=== PATIENT | female | born 1940 | race Caucasian/White ===

== ENCOUNTER 2017-03-13 18:24 | Inpatient (IN) | payer MEDICARE, OTHER ==
[~2017-03-13] VITALS: Ht 160 cm; Wt 52.8 kg
[~2017-03-13 18:24] MED LIST: CALC1TAB98 PO; EFFEXOR PO; FAMO20TA18 PO; IBUP800T25 PO; LISI-325 PO; METO10TA92 PO; OXYBUTYNIN PO; PANT40TA4 PO
[2017-03-13] MEDS ORDERED: morphine 4 MG/ML VIAL IV STA (18:53)
[2017-03-13] MEDS ORDERED: ONDANSETRON 4 MG INJ IV STA (18:53)
[2017-03-13] MEDS ORDERED: SOD CHLORIDE 0.9% 1,000 ML IV STA (18:53)
[2017-03-13] MEDS ORDERED: HYDROmorphONE 1 MG/ML SYG IV STA (19:07)
[2017-03-13 19:14] VITALS: TEMP 98.2
[2017-03-13 19:16] LABS: BASOPHILS % 0.2 % (0.0-2.0); EOSINOPHILS % 0.1 % (0.0-7.0); HEMOGLOBIN 13.1 g/dl (12.0-16.0); LYMPHOCYTES # 1.3 10^3/ul (0.8-2.9); LYMPHOCYTES % 6.8 % (15.0-51.0); MEAN CORPUSCULAR HEMOGLOBIN 30.3 pg (29.0-33.0); MEAN CORPUSCULAR HGB CONC 33.6 g/dl (32.0-37.0); MEAN CORPUSCULAR VOLUME 90.3 fl (82.0-101.0); MEAN PLATELET VOLUME 10.3 fl (7.4-10.4); MONOCYTE # 1.4 10^3/ul (0.3-0.9); MONOCYTES % 7.1 % (0.0-11.0); NEUTROPHILS % 85.3 % (39.0-77.0); PLATELET COUNT 395 10^3/UL (140-415); RED BLOOD COUNT 4.32 10^6/ul (4.20-5.40); RED CELL DISTRIBUTION WIDTH 13.2 % (11.5-14.5); WHITE BLOOD COUNT 19.2 10^3/ul (4.8-10.8)
[2017-03-13 19:40] LABS: ALBUMIN 4.3 g/dl (3.3-4.9); ALBUMIN/GLOBULIN RATIO 1.26; BILIRUBIN,INDIRECT 0.6 mg/dl (0-1.1); BILIRUBIN,TOTAL 0.6 mg/dl (0.2-1.3); CALCIUM 9.4 mg/dl (8.4-10.2); CREATININE 1.14 mg/dl (0.44-1.00); POTASSIUM 3.9 mmol/L (3.5-5.1); TOTAL PROTEIN 7.7 g/dl (6.1-8.1)
[2017-03-13 19:59] LABS: ADD UMIC YES; UR ASCORBIC ACID NEGATIVE (NEGATIVE); UR BACTERIA FEW /HPF (NONE SEEN); UR BILIRUBIN (Dip) NEGATIVE (NEGATIVE); UR BLOOD (Dip) 2+ mg/dL (NEGATIVE); UR CLARITY CLEAR (CLEAR); UR COLOR YELLOW (YELLOW); UR GLUCOSE (Dip) NEGATIVE (NEGATIVE); UR KETONES (Dip) TRACE mg/dL (NEGATIVE); UR LEUKOCYTE ESTERASE (Dip) NEGATIVE Leu/ul (NEGATIVE); UR NITRITE (Dip) NEGATIVE (NEGATIVE); UR RBC 7 /HPF (0-5); UR SPECIFIC GRAVITY (Dip) 1.011 (1.003-1.030); UR TOTAL PROTEIN (Dip) NEGATIVE (NEGATIVE); UR UROBILINOGEN (Dip) NEGATIVE (NEGATIVE)
[2017-03-13] MEDS ORDERED: METOCLOPRAMIDE 10 MG INJ IV ONE (20:00)
--- NOTE | 2017-03-13 20:29 | ERD ---
ER Documentation Chief Complaint Date/Time DATE: 03/13/17 TIME: 20:21 Chief Complaint ABD PIN X3 DAYS, SEVERE TODAY, NAUSEA/VOMITING HPI 76-year-old female presents for severe abdominal pain in the center of her abdomen for 3 days. She has had occasional nausea and vomiting. She denies diarrhea. States that she does have trouble having a bowel movement sometimes. 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 She has no abdominal pain no 4 left right upper lower quadrants. Has no chest pain or shortness of breath. Has no fever and chills ROS All systems reviewed and are negative except as per history of present illness. Medications Home Meds Reported Medications Metoclopramide* (Reglan*) 10 Mg Tablet, 10 MG PO AC MEALS, TAB 03/31/14 Pantoprazole (Protonix) 40 Mg Tabec, 40 MG PO QHS, TAB 03/31/14 Ibuprofen* (Ibuprofen*) 800 Mg Tab, 800 MG PO, TAB 03/31/14 Famotidine* (Famotidine*) 20 Mg Tablet, 20 MG PO DAILY, TAB 03/31/14 [Effexor] 75 MG TAB No Conflict Check, 75 MG PO DAILY 02/26/13 Calcium Carbonate-Vitamin D3 (Calcium + D 600 Tablet) 1 Tab Tablet, 1 TAB PO BID 02/26/13 Lisinopril-Hydrochlorothiazide (Lisinopril-HCTZ) 1 Tab Tablet, 1 TAB PO DAILY 02/26/13 [Oxybutynin] 25 MG TAB No Conflict Check, 25 MG PO QID 02/26/13 Allergies Allergies: Coded Allergies: aspirin (Verified Allergy, Mild, 03/30/14) gabapentin (Verified Allergy, Mild, ITCHINESS, 03/30/14) hydrocodone (Verified Allergy, Mild, MAKES PT SICK, 04/06/14) PMhx/Soc History of Surgery: Yes (BILAT ROTATOR CUFF SURGERY; WRIST SURGERY, FACE SUGERY ) Anesthesia Reaction: No Hx Neurological Disorder: Yes (MS) Hx Respiratory Disorders: No Hx Cardiac Disorders: Yes (HTN) Hx Psychiatric Problems: Yes (DEPRESSION) Hx Miscellaneous Medical Probl: Yes (bilateral pelvic fx D/T mech fall) Hx Alcohol Use: Yes (OOC) Hx Substance Use: Yes (MJ) Hx Tobacco Use: No Smoking Status: Former smoker Physical Exam Vitals Vital Signs Date Time Temp Pulse Resp B/P Pulse Ox O2 Delivery O2 Flow Rate FiO2 03/13/17 21:00 100 2.0 28 03/13/17 19:14 98.2 108 28 147/81 99 Room Air 03/13/17 18:29 98.6 112 22 147/81 97 Physical Exam Const: [] Mild distress Head: Atraumatic Eyes: Normal Conjunctiva ENT: Normal External Ears, Nose and Mouth. Neck: Full range of motion..~ No meningismus. Resp: Clear to auscultation bilaterally Cardio: Regular mild regular tachycardia, no murmurs Abd: Soft, moderate periumbilical abdominal tenderness without guarding or rebound, non distended. Normal bowel sounds Skin: No petechiae or rashes Back: No midline or flank tenderness Ext: No cyanosis, or edema Neur: Awake and alert and oriented 3, no focal deficits Psych: Normal Mood and Affect Result Diagram: 03/13/17189903/13/171899 Results 24 hrs Laboratory Tests Test 03/13/17 19:00 03/13/17 19:45 White Blood Count 19.210^3/ul Red Blood Count 4.3210^6/ul Hemoglobin 13.1g/dl Hematocrit 39.0% Mean Corpuscular Volume 90.3fl Mean Corpuscular Hemoglobin 30.3pg Mean Corpuscular Hemoglobin Concent 33.6g/dl Red Cell Distribution Width 13.2% Platelet Count 11289^3/UL Mean Platelet Volume 10.3fl Neutrophils % 85.3% Lymphocytes % 6.8% Monocytes % 7.1% Eosinophils % 0.1% Basophils % 0.2% Nucleated Red Blood Cells % 0.0/100WBC Neutrophils # (Manual) 1610^3/ul Lymphocytes # 1.310^3/ul Monocytes # 1.410^3/ul Eosinophils # 0.010^3/ul Basophils # 0.010^3/ul Nucleated Red Blood Cells # 0.010^3/ul Sodium Level 136mmol/L Potassium Level 3.9mmol/L Chloride Level 101mmol/L Carbon Dioxide Level 24mmol/L Anion Gap 15 Blood Urea Nitrogen 29mg/dl Creatinine 1.14mg/dl Glucose Level 119mg/dl Calcium Level 9.4mg/dl Total Bilirubin 0.6mg/dl Direct Bilirubin 0.00mg/dl Indirect Bilirubin 0.6mg/dl Aspartate Amino Transf (AST/SGOT) 20IU/L Alanine Aminotransferase (ALT/SGPT) 23IU/L Alkaline Phosphatase 213IU/L Total Protein 7.7g/dl Albumin 4.3g/dl Globulin 3.40g/dl Albumin/Globulin Ratio 1.26 Lipase 39U/L Urine Color YELLOW Urine Clarity CLEAR Urine pH 6.0 Urine Specific [place] 1.011 Urine Ketones TRACEmg/dL Urine Nitrite NEGATIVEmg/dL Urine Bilirubin NEGATIVEmg/dL Urine Urobilinogen NEGATIVEmg/dL Urine Leukocyte Esterase NEGATIVELeu/ul Urine Microscopic RBC 7/HPF Urine Microscopic WBC 1/HPF Urine Bacteria FEW/HPF Urine Hemoglobin 2+mg/dL Urine Glucose NEGATIVEmg/dL Urine Total Protein NEGATIVEmg/dl Current Medications Medications (Trade) Dose Ordered Sig/Lucy Route PRN Reason Start Time Stop Time Status Last Admin Dose Admin Sodium Chloride (NS) 1,000 ml @ 1,000 mls/hr Q1H STAT IV 03/13/17 18:53 03/13/17 19:52 DC 03/13/17 19:22 Morphine Sulfate (morphine) 4 mg ONCE STAT IV 03/13/17 18:53 03/13/17 19:08 DC Ondansetron HCl (Zofran Inj) 4 mg ONCE STAT IV 03/13/17 18:53 03/13/17 18:54 DC 03/13/17 19:22 Hydromorphone HCl (Dilaudid) 1 mg ONCE STAT IV 03/13/17 19:07 03/13/17 19:08 DC 03/13/17 19:22 Metoclopramide HCl 10 mg 10 mg ONCE ONCE IV 03/13/17 20:00 03/13/17 20:01 DC 03/13/17 20:00 Sodium Chloride (NS) 1,000 ml @ 1,000 mls/hr Q1H ONCE IV 03/13/17 22:00 03/13/17 22:59 DC 03/13/17 21:50 Procedures/MDM Severe acute abdominal pain with colitis versus diverticulitis. Patient was given 1 of Dilaudid which did help her severe pain and eased her distress. She is feeling much better afterward and talkative and pleasant. She is also given Zofran and 2 L of IV fluid which will help with her mild renal insufficiency.. Patient was aware of a hiatal hernia that she had. I also gave her a gram of Rocephin and 500 of IV Flagyl for possible infectious colitis versus diverticulitis. She is going to be admitted to the medical surgical floor for further treatment of her infection. EKG interpretation: Normal sinus rhythm rate of 91, normal axis, normal intervals, no ST-T wave changes concerning for acute ischemia. Normal EKG CT abdomen pelvis interpretation: Colitis versus diverticulitis and inflammation of the colon, no perforation, no free air, no fractures. No evidence of bowel obstruction. Departure Diagnosis: Primary Impression: Acute colitis Additional Impressions: Acute abdominal pain Hiatal hernia Renal insufficiency Condition: Serious SANTO FAYE DO Mar 13, 2017 20:29
[2017-03-13] MEDS ORDERED: SOD CHLORIDE 0.9% 1,000 ML IV ONE (22:00)
--- NOTE | 2017-03-13 23:37 | RADRPT ---
PROCEDURE: CT abdomen and pelvis without intravenous contrast. CLINICAL INDICATION: Pain. TECHNIQUE: CT of the abdomen/pelvis was performed utilizing axial images with reconstructions in s agittal and coronal planes. The administered radiation dose is CTDI 12.7 mGy, DLP 632 mGy-cm. COMPARISON: No pertinent prior examinations were submitted for comparison. FINDINGS: Visualized Chest: There is some mild atelectasis in the lung bases. There is a partially visualized large hiatal hernia which contains the stomach and most of the pancreas. Coronary artery calcificat ions are noted. Abdomen: The liver, spleen, pancreas, and adrenal glands are unremarkable. The gallbladder is distended. A small stone is noted in the gallbladder. The kidneys are without hydronephrosis. No definite urinary calculi are seen. There is no evidence of bowel obstruction. The appendix is normal. No intra-abdominal free air is seen. Some diverticula are noted along the sigmoid colon. There is segmental thickening along the m id to distal descending colon with some mild surrounding inflammatory changes. No definite divertic gian are seen along the thickened segment. No intra-abdominal adenopathy is seen. There is trace intra-abdominal ascites. Vascular calcificat ions are noted within the aorta and its branches. Pelvis: Prior hysterectomy is noted. The urinary bladder is unremarkable. There is no pelvic adenopathy of free fluid. Osseous structures: Unremarkable. IMPRESSION: Thickening of the mid to distal descending colon likely due to focal colitis. Diverticulitis is fel t to be somewhat less likely since the segment of involvement is greater than typically seen and no definite diverticula are seen along the thickened segment. Mild sigmoid colonic diverticulosis. Large hiatal hernia containing the stomach and most of the pancreas. Nonspecific gallbladder distension with a small stone in the gallbladder. Trace intra-abdominal ascites. RPTAT: HIKT .Uriel Ross MD, Date Time Electronically viewed and signed by .Uriel Ross MD, MD on 03/13/2017 23:37 .T/
[2017-03-14] MEDS ORDERED: CEFTRIAXONE 1 GM/50 ML (PMX) 50 ML IVPB ONE
[2017-03-14] MEDS ORDERED: metroNIDAZOLE 500 MG/NS (PMX) 100 ML IVPB ONE
[2017-03-14] MEDS ORDERED: ONDANSETRON 4 MG INJ IV PRN (01:30)
[2017-03-14] MEDS ORDERED: ACETAMINOPHEN 325 MG TAB PO PRN ×2 (01:30→06:00)
[2017-03-14 05:03] VITALS: Ht 160 cm; Wt 52.8 kg
[2017-03-14 05:04] VITALS: BP 135/63; PULSE 75; RESP 18
[2017-03-14] MEDS ORDERED: morphine 2 MG INJ IV PRN (05:30)
[2017-03-14] MEDS ORDERED: IBUPROFEN 800 MG TAB PO PRN (05:30)
[2017-03-14] MEDS: HYDROmorphONE 1 MG/ML SYG IV PRN ×2 (06:06→20:32)
[2017-03-14] MEDS: SOD CHLORIDE 0.9% 1,000 ML IV SCH (06:08)
[2017-03-14] MEDS: metroNIDAZOLE 500 MG/NS (PMX) 100 ML IVPB SCH ×4 (06:09→23:44)
[2017-03-14 08:23] VITALS: BP 122/60; RESP 17
[2017-03-14] MEDS ORDERED: LISINOPRIL HYDROCHLOROTHIAZIDE XX SCH (09:00)
[2017-03-14] MEDS: METOCLOPRAMIDE 10 MG TAB PO SCH ×3 (09:21→18:04)
[2017-03-14] MEDS: FAMOTIDINE 20 MG TAB PO SCH (09:21)
[2017-03-14] MEDS: CALCIUM/VITAMIN D (500/200) TAB PO SCH ×2 (09:21→20:31)
--- NOTE | 2017-03-14 11:43 | HP ---
Date/Time of Note Date/Time of Note DATE: 03/14/17 TIME: 11:41 Assessment/Plan VTE Prophylaxis VTE Prophylaxis Intervention: other Lines/Catheters IV Catheter Type (from Nrs): Peripheral IV Assessment/Plan Chief Complaint/Hosp Course 1) colitis - IV antibiotics 2) hypertension - continue home meds Problems: HPI/ROS Admit Date/Time Admit Date/Time Mar 14, 2017 at 01:22 Hx of Present Illness Patient with a history of hypertension and multiple sclerosis comes in with three days of abdominal pain and chills. Patient denies any fever, diarrhea, vomiting though also has nausea. In the ER, patient was found to have leukocytosis with colitis and so is admitted for further treatment. PMH/Family/Social Past Medical History Medical History: hypertension, other Past Surgical History Past Surgical Hx: no surgical history Social History Alcohol Use: none Smoking Status: Never smoker Exam/Review of Systems Vital Signs Vitals Vital Signs Date Time Temp Pulse Resp B/P Pulse Ox O2 Delivery O2 Flow Rate FiO2 03/14/17 08:23 98.0 83 17 122/60 94 03/14/17 05:04 Room Air 03/14/17 04:10 2.0 03/13/17 21:00 28 Intake and Output 03/13/17 03/13/17 03/14/17 15:00 23:00 07:00 Intake Total 1000 ml Balance 1000 ml Exam Constitutional: well developed Head: atraumatic, normocephalic Neck: supple Respiratory: clear to auscultation Cardiovascular: regular rate and rhythm Gastrointestinal: non-tender, soft Extremities: normal pulses Labs Result Diagram: 03/13/17189903/13/171899 Medications Medications Current Medications Famotidine (Pepcid) 20 mg DAILY PO Last administered on 03/14/17 09:21; Admin Dose 20 MG; Start 03/14/17 at 09:00 Pantoprazole (Protonix Tab) 40 mg QHS PO ; Start 03/14/17 at 21:00 Calcium/Vitamin D (Oyster Shell/ Vit-D (500/200)) 1 tab BID PO Last administered on 03/14/17 09:21; Admin Dose 1 TAB; Start 03/14/17 at 09:00 Venlafaxine HCl (Effexor) 75 mg DAILY PO ; Start 03/14/17 at 11:30 Oxybutynin Chloride 5 mg 5 mg QID PO ; Start 03/14/17 at 11:00 Sodium Chloride 1,000 ml @ 50 mls/hr Q20H IV Last administered on 03/14/17 06 :08; Admin Dose 50 MLS/HR; Start 03/14/17 at 05:30 Metronidazole (Flagyl 500 Mg (Pmx)) 100 ml @ 100 mls/hr Q6 IVPB Last administered on 03/14/17 06:09; Admin Dose 100 MLS/HR; Start 03/14/17 at 06:00 Ondansetron HCl (Zofran Inj) 4 mg Q6H PRN IV NAUSEA AND/OR VOMITING; Start at 05:30 Hydromorphone HCl (Dilaudid) 1 mg Q4H PRN IV PAIN Last administered on 06:06; Admin Dose 1 MG; Start 03/14/17 at 06:00 Acetaminophen (Tylenol Tab) 650 mg Q6H PRN PO PAIN AND OR ELEVATED TEMP; Start 03/14/17 at 06:00 Hydrochlorothiazide (Hydrochlorothiazide) 12.5 mg DAILY PO ; Start 03/14/17 at 11:00 Lisinopril (Zestril) 10 mg DAILY PO ; Start 03/14/17 at 11:00 OSMEL WILKINS Mar 14, 2017 11:43
[2017-03-14] MEDS: OXYBUTYNIN 5 MG TAB PO SCH ×3 (13:08→20:32)
[2017-03-14] MEDS: HYDROCHLOROTHIAZIDE 12.5 MG CAP PO SCH (13:09)
[2017-03-14] MEDS: ONDANSETRON 4 MG INJ IV PRN (13:14)
[2017-03-14] MEDS: VENLAFAXINE 75 MG TABLET PO SCH (13:14)
[2017-03-14 14:00] VITALS: BP 123/58; RESP 18
[2017-03-14 18:59] VITALS: BP 128/60; RESP 18
[2017-03-14] MEDS: PANTOPRAZOLE (EC) 40 MG TAB PO SCH (20:31)
[2017-03-15 01:52] VITALS: BP 112/52; RESP 18
[2017-03-15] MEDS: SOD CHLORIDE 0.9% 1,000 ML IV SCH ×2 (06:10→21:30)
[2017-03-15] MEDS: metroNIDAZOLE 500 MG/NS (PMX) 100 ML IVPB SCH ×3 (06:10→18:34)
[2017-03-15] MEDS: METOCLOPRAMIDE 10 MG TAB PO SCH ×5 (07:20→18:33)
[2017-03-15 07:27] VITALS: BP 119/56; RESP 19
[2017-03-15] MEDS: FAMOTIDINE 20 MG TAB PO SCH (09:30)
[2017-03-15] MEDS: CALCIUM/VITAMIN D (500/200) TAB PO SCH ×2 (09:30→22:01)
[2017-03-15] MEDS: VENLAFAXINE 75 MG TABLET PO SCH (09:30)
[2017-03-15] MEDS: OXYBUTYNIN 5 MG TAB PO SCH ×4 (09:30→22:01)
[2017-03-15] MEDS: HYDROCHLOROTHIAZIDE 12.5 MG CAP PO SCH (09:31)
[2017-03-15] MEDS: LISINOPRIL 10 MG TAB PO SCH (09:31)
[2017-03-15 13:56] VITALS: BP 118/52; RESP 20
--- NOTE | 2017-03-15 16:37 | PN ---
Date/Time of Note Date/Time of Note DATE: 03/15/17 TIME: 16:34 Assessment/Plan VTE Prophylaxis VTE Prophylaxis Intervention: SCD's Lines/Catheters [facility] Peripheral IV Urinary Cath still in place: No Assessment/Plan Chief Complaint/Hosp Course Patient had nausea and poor appetite yesterday which improved to today, patient' s complains of generalized weakness denies vomiting diarrhea. Problems: Assessment/Plan -Acute colitis, will check stool for C. difficile, Dr. Mills is asked to see patient in gastroenterology consultation. -Nausea vomiting, continue Zofran as needed for nausea, gentle hydration. -Hypertension, continue lisinopril -MS -Depression, continue Effexor. -Large hiatal hernia Further recommendations based on clinical course. Plan of care discussed with Dr. Alves. Exam/Review of Systems Vital Signs Vitals Vital Signs Date Time Temp Pulse Resp B/P Pulse Ox O2 Delivery O2 Flow Rate FiO2 03/15/17 13:56 98.0 79 20 118/52 96 03/14/17 05:04 Room Air 03/14/17 04:10 2.0 03/13/17 21:00 28 Intake and Output 03/14/17 03/14/17 03/15/17 15:00 23:00 07:00 Intake Total 400 ml 950 ml 1040 ml Output Total 550 ml Balance -150 ml 950 ml 1040 ml Exam Constitutional: alert Head: normocephalic Neck: supple Respiratory: normal air movement Cardiovascular: nl pulses Gastrointestinal: non-tender, soft Extremities: normal pulses Results Result Diagram: 03/13/17189903/13/17 190 Medications Medications Current Medications Famotidine (Pepcid) 20 mg DAILY PO Last administered on 03/15/17 09:30; Admin Dose 20 MG; Start 03/14/17 at 09:00 Pantoprazole (Protonix Tab) 40 mg QHS PO Last administered on 03/14/17 20:31; Admin Dose 40 MG; Start 03/14/17 at 21:00 Calcium/Vitamin D (Oyster Shell/ Vit-D (500/200)) 1 tab BID PO Last administered on 03/15/17 09:30; Admin Dose 1 TAB; Start 03/14/17 at 09:00 Venlafaxine HCl (Effexor) 75 mg DAILY PO Last administered on 03/15/17 09:30; Admin Dose 75 MG; Start 03/14/17 at 11:30 Oxybutynin Chloride 5 mg 5 mg QID PO Last administered on 03/15/17 12:56; Admin Dose 5 MG; Start 03/14/17 at 11:00 Sodium Chloride 1,000 ml @ 50 mls/hr Q20H IV Last administered on 03/15/17 06 :10; Admin Dose 50 MLS/HR; Start 03/14/17 at 05:30 Metronidazole (Flagyl 500 Mg (Pmx)) 100 ml @ 100 mls/hr Q6 IVPB Last administered on 03/15/17 12:57; Admin Dose 100 MLS/HR; Start 03/14/17 at 06:00 Ondansetron HCl (Zofran Inj) 4 mg Q6H PRN IV NAUSEA AND/OR VOMITING Last administered on 03/14/17 13:14; Admin Dose 4 MG; Start 03/14/17 at 05:30 Hydromorphone HCl (Dilaudid) 1 mg Q4H PRN IV PAIN Last administered on 20:32; Admin Dose 1 MG; Start 03/14/17 at 06:00 Acetaminophen (Tylenol Tab) 650 mg Q6H PRN PO PAIN AND OR ELEVATED TEMP; Start 03/14/17 at 06:00 Hydrochlorothiazide (Hydrochlorothiazide) 12.5 mg DAILY PO Last administered on 03/15/17 09:31; Admin Dose 12.5 MG; Start 03/14/17 at 11:00 Lisinopril (Zestril) 10 mg DAILY PO Last administered on 03/15/17 09:31; Admin Dose 10 MG; Start 03/14/17 at 11:00 OFELIA FLOREZ Mar 15, 2017 16:37
[2017-03-15] MEDS ORDERED: MAGNESIUM CITRATE 300 ML BTL PO ONE (19:00)
[2017-03-15 19:32] VITALS: BP 147/66; RESP 18
[2017-03-15] MEDS ORDERED: LACTULOSE 30ML CUP PO SCH (21:00)
[2017-03-15] MEDS: PANTOPRAZOLE (EC) 40 MG TAB PO SCH (22:01)
[2017-03-16] VITALS (9 sets, daily range): BP systolic 119–149; BP diastolic 57–85; PULSE 86–88; RESP 15–30
[2017-03-16] MEDS: metroNIDAZOLE 500 MG/NS (PMX) 100 ML IVPB SCH ×5 (00:36→23:48)
--- NOTE | 2017-03-16 04:42 | CONS ---
DATE OF ADMISSION: 03/14/2017 DATE OF CONSULTATION: 03/15/2017 HISTORY OF PRESENT ILLNESS: Dear Dr. Alves, Thank you for asking me to see Akilah Hdzzeke in GI consultation. As you know, the patient is a 76-year-old, pleasant white female, who was admitted to the hospital because of abdominal pain which she has been experiencing for the past four days. She has been nauseated, but no significant vomiting or any significant diarrhea. No GI bleeding. She had one bowel movement today. She generally has constipation. She has multiple other medical problems including history of hypertension, multiple sclerosis. The patient has lost some weight, but no significant weight loss. PAST SURGICAL HISTORY: Includes a hysterectomy. REVIEW OF SYSTEMS: As mentioned above. Hypertension. No sure about multiple sclerosis. This needs to be further evaluated. She has a history of chronic difficulty in swallowing. At times the food will get stuck in the throat and she has to go to the bathroom and has to do a self-injection of the vomiting to get the food out of the throat. 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 She does not smoke or drink. PHYSICAL EXAMINATION: GENERAL: Patient is a 76-year-old, white female, who at this time is alert. VITAL SIGNS: She is afebrile. Blood pressure is 118/52, temperature is 98. HEART: Normal heart sounds. LUNGS: Normal breath sounds. ABDOMEN: Soft with no palpable masses. No distention but she does have some mild tenderness in the upper abdomen. LABORATORY: WBC count is 19,200, hemoglobin 13.1, platelet count of 395,000. Chemistry: Potassium is 3.9, BUN is 29, creatinine 1.14, AST 20, ALT 23, alk phos 213. Lipase is 39. The CT scan of the abdomen shows evidence of her diverticulosis. Gallbladder is mildly distended. Prior hysterectomy is noted. There is a small gallstone noted in the gallbladder. IMPRESSION: 1. Patient presenting with history of abdominal pain. There is evidence of distention of the gallbladder on the CAT scan. She is possible she could have cholecystitis. Gallstones noted in the gallbladder. There is elevated alkaline phosphatase. 2. She has colitis on the CAT scan. The significance is not very clear. 3. She has no difficulty in swallowing. Rule out gastroesophageal reflux disease. Rule out peptic ulcer disease. 4. History of hypertension, diverticulosis. PLAN: At this time. Recommend MRCP. Recommend EGD and colonoscopy as well. Once again doctor, thank you for this consultation. Dictated By: Jose Luis Mills MD /phoebe/laurence /Document#: [id number] CC: Germain Alves MD;*EndCC*
[2017-03-16 05:09] LABS: BASOPHIL # 0.1 10^3/ul (0.0-0.1); BASOPHILS % 0.6 % (0.0-2.0); EOSINOPHILS # 0.1 10^3/ul (0.0-0.5); EOSINOPHILS % 1.5 % (0.0-7.0); HEMATOCRIT 31.6 % (37.0-47.0); HEMOGLOBIN 10.2 g/dl (12.0-16.0); LYMPHOCYTES # 1.2 10^3/ul (0.8-2.9); LYMPHOCYTES % 13.6 % (15.0-51.0); MEAN CORPUSCULAR HEMOGLOBIN 29.3 pg (29.0-33.0); MEAN CORPUSCULAR HGB CONC 32.3 g/dl (32.0-37.0); MEAN CORPUSCULAR VOLUME 90.8 fl (82.0-101.0); MEAN PLATELET VOLUME 10.5 fl (7.4-10.4); MONOCYTE # 0.9 10^3/ul (0.3-0.9); MONOCYTES % 10.2 % (0.0-11.0); NEUTROPHILS % 73.7 % (39.0-77.0); PLATELET COUNT 287 10^3/UL (140-415); RED BLOOD COUNT 3.48 10^6/ul (4.20-5.40); RED CELL DISTRIBUTION WIDTH 13.4 % (11.5-14.5); WHITE BLOOD COUNT 8.5 10^3/ul (4.8-10.8)
[2017-03-16 05:39] LABS: CALCIUM 8.9 mg/dl (8.4-10.2); POTASSIUM 3.9 mmol/L (3.5-5.1)
[2017-03-16] MEDS: SOD CHLORIDE 0.9% 1,000 ML IV SCH ×2 (06:23→17:30)
--- NOTE | 2017-03-16 06:29 | RADRPT ---
PROCEDURE: MR Abdomen. CLINICAL INDICATION: Abdominal pain. Gallbladder distension and gallstones. Evaluate for choledo cholithiasis. TECHNIQUE: Multiplanar multi sequence imaging of the abdomen without contrast. MRCP sequences were performed. COMPARISON: None available FINDINGS: MRI Abdomen: The study is significantly limited by decreased ability to breath hold. Again seen is a very large hiatal hernia to the right of midline containing the stomach and pancreas. Tiny pleural effusions. No gross abnormality of the liver, spleen, adrenals, kidneys, or pancreas is seen. Incidental small cyst in the right lobe of the liver. The gallbladder is distended, measuring 7.5 cm in length. The re are at least 2 large gallstones present, the larger measuring 2 cm. No gross intrahepatic ductal dilatation is seen. The cystic duct is grossly patent. The common bile duct measures 6 mm in diam eter, top normal. Series 6 is the only series without significant motion artifact. There is not gr oss choledocholithiasis seen. Evaluation of the bowel is significantly limited by motion. No gross free fluid. No pancreatic ductal dilatation is seen. IMPRESSION: Distended gallbladder with large stones. Significantly limited study without definite evidence for choledocholithiasis or biliary ductal dilatation. Small hepatic cyst. Redemonstration of large hia emely hernia containing the stomach and pancreas.. RPTAT: HLBE Physician Yosef Date Time Electronically viewed and signed by Physician Yosef on 03/16/2017 06:28 LE/
[2017-03-16] MEDS: METOCLOPRAMIDE 10 MG TAB PO SCH ×3 (07:20→17:25)
[2017-03-16] MEDS: ONDANSETRON 4 MG INJ IV PRN (07:39)
[2017-03-16] MEDS: FAMOTIDINE 20 MG TAB PO SCH (08:47)
[2017-03-16] MEDS: HYDROCHLOROTHIAZIDE 12.5 MG CAP PO SCH (08:47)
[2017-03-16] MEDS: CALCIUM/VITAMIN D (500/200) TAB PO SCH ×2 (08:47→20:59)
[2017-03-16] MEDS: LISINOPRIL 10 MG TAB PO SCH (08:48)
[2017-03-16] MEDS: VENLAFAXINE 75 MG TABLET PO SCH (08:48)
[2017-03-16] MEDS: OXYBUTYNIN 5 MG TAB PO SCH ×4 (09:28→20:59)
[2017-03-16 16:31] LABS: INR 1.14; PROTIME 14.6 Sec (12.2-14.2); PT RATIO 1.1
--- NOTE | 2017-03-16 16:50 | PN ---
Date/Time of Note Date/Time of Note DATE: 03/16/17 TIME: 16:48 Assessment/Plan VTE Prophylaxis VTE Prophylaxis Intervention: SCD's Lines/Catheters IV [facility] (from [facility]): Peripheral IV Urinary Cath still in place: No Assessment/Plan Chief Complaint/Hosp Course Patient had an episode of nausea in the morning, patient is currently n.p.o. for possible endoscopy today. Assessment/Plan -Acute colitis, check stool for C. difficile, Dr. Mills is following in gastroenterology consultation. Pending endoscopy today. -Nausea vomiting, continue Zofran as needed for nausea, gentle hydration. -Hypertension, continue lisinopril -MS -Depression, continue Effexor. -Large hiatal hernia Further recommendations based on clinical course. Plan of care discussed with Dr. Alves. Problems: Exam/Review of Systems Vital Signs Vitals Vital Signs Date Time Temp Pulse Resp B/P Pulse Ox O2 Delivery O2 Flow Rate FiO2 03/16/17 07:48 98.3 80 16 130/71 96 03/14/17 05:04 Room Air 03/14/17 04:10 2.0 03/13/17 21:00 28 Intake and Output 03/15/17 03/15/17 03/16/17 15:00 23:00 07:00 Intake Total 100 ml 1340 ml 750 ml Output Total 1100 ml Balance 100 ml 240 ml 750 ml Exam Constitutional: alert Head: normocephalic Neck: supple Respiratory: normal air movement Cardiovascular: nl pulses Gastrointestinal: non-tender, soft Extremities: normal pulses Results Result Diagram: 03/16/17 0425 03/16/17 0425 Results 24 hrs Laboratory Tests Test 03/16/17 04:25 03/16/17 15:49 White Blood Count 8.5 # Red Blood Count 3.48 L Hemoglobin 10.2 #L Hematocrit 31.6 L Mean Corpuscular Volume 90.8 Mean Corpuscular Hemoglobin 29.3 Mean Corpuscular Hemoglobin Concent 32.3 Red Cell Distribution Width 13.4 Platelet Count 287 # Mean Platelet Volume 10.5 H Neutrophils % 73.7 Lymphocytes % 13.6 L Monocytes % 10.2 Eosinophils % 1.5 Basophils % 0.6 Nucleated Red Blood Cells % 0.0 Neutrophils # (Manual) 6 Lymphocytes # 1.2 Monocytes # 0.9 Eosinophils # 0.1 Basophils # 0.1 Nucleated Red Blood Cells # 0.0 Sodium Level 138 Potassium Level 3.9 Chloride Level 105 Carbon Dioxide Level 23 Anion Gap 14 Blood Urea Nitrogen 12 Creatinine 1.00 Glucose Level 93 Calcium Level 8.9 Prothrombin Time 14.6 H Prothrombin Time Ratio 1.1 INR International Normalized Ratio 1.14 Medications Medications Current Medications Famotidine (Pepcid) 20 mg DAILY PO Last administered on 03/15/17 09:30; Admin Dose 20 MG; Start 03/14/17 at 09:00 Pantoprazole (Protonix Tab) 40 mg QHS PO Last administered on 03/15/17 22:01; Admin Dose 40 MG; Start 03/14/17 at 21:00 Calcium/Vitamin D (Oyster Shell/ Vit-D (500/200)) 1 tab BID PO Last administered on 03/15/17 22:01; Admin Dose 1 TAB; Start 03/14/17 at 09:00 Venlafaxine HCl (Effexor) 75 mg DAILY PO Last administered on 03/15/17 09:30; Admin Dose 75 MG; Start 03/14/17 at 11:30 Oxybutynin Chloride 5 mg 5 mg QID PO Last administered on 03/16/17 09:28; Admin Dose 5 MG; Start 03/14/17 at 11:00 Sodium Chloride 1,000 ml @ 50 mls/hr Q20H IV Last administered on 03/16/17 06 :23; Admin Dose 50 MLS/HR; Start 03/14/17 at 05:30 Metronidazole (Flagyl 500 Mg (Pmx)) 100 ml @ 100 mls/hr Q6 IVPB Last administered on 03/16/17 12:44; Admin Dose 100 MLS/HR; Start 03/14/17 at 06:00 Ondansetron HCl (Zofran Inj) 4 mg Q6H PRN IV NAUSEA AND/OR VOMITING Last administered on 03/16/17 07:39; Admin Dose 4 MG; Start 03/14/17 at 05:30 Hydromorphone HCl (Dilaudid) 1 mg Q4H PRN IV PAIN Last administered on 20:32; Admin Dose 1 MG; Start 03/14/17 at 06:00 Acetaminophen (Tylenol Tab) 650 mg Q6H PRN PO PAIN AND OR ELEVATED TEMP; Start 03/14/17 at 06:00 Hydrochlorothiazide (Hydrochlorothiazide) 12.5 mg DAILY PO Last administered on 03/15/17 09:31; Admin Dose 12.5 MG; Start 03/14/17 at 11:00 Lisinopril (Zestril) 10 mg DAILY PO Last administered on 03/15/17 09:31; Admin Dose 10 MG; Start 03/14/17 at 11:00 Lactulose (Enulose) 20 gm Q3 PO ; Start 03/15/17 at 21:00; Status Future Hold OFELIA FLOREZ Mar 16, 2017 16:50
[2017-03-16] MEDS ORDERED: FENTAnyl 50 MCG/ML VIAL ONE (18:48)
[2017-03-16] MEDS ORDERED: MIDAZOLAM 1 MG/ML 2 ML INJ ONE ×2 (18:48)
[2017-03-16] MEDS ORDERED: LIDOCAINE 4% SOLUTION 50 ML BTL ONE (18:54)
--- NOTE | 2017-03-16 19:26 | OPPN ---
Date/Time of Note Date/Time of Note DATE: 03/16/17 TIME: 19:21 Proc Note GI Procedure date: Mar 16, 2017 Pre-procedure Diagnosis History of a dysphagia Post-procedure Diagnosis Large hiatal hernia Minimal reflux esophagitis Number gastritis Operation Performed EGD Surgeon: EVERARDO AMEZQUITA MD Anesthesia Type: moderate sedation Estimated blood loss: none Transfusion Required: no Specimens Gastric biopsy Complications: no Complications None Pt Condition post procedure: stable Indications Rule out esophagitis esophageal neoplasm Operative\Procedure Findings After informed written consent is obtained patient was ostial in the left lateral side. Intravenous anesthesia was given which included 1 mg Versed and 25 mcg of fentanyl when the patient become somnolent Olympus video upper endoscope was introduced into the oropharynx then into the esophagus At this time esophagus showed evidence of large hiatal hernia minimal reflux esophagitis noted there is evidence of a dilated esophagus \Scope with this and was advanced into the stomach \Minimal erythema noted in the fundus of the stomach. The one biopsy was obtained to rule out H. pylori infection. Scope with the stem was advanced into the duodenum duodenum appeared perfectly normal Scope with this and was withdrawn and the procedure was terminated And recommend to consider surgical approach Dictation please send copy to my office and also to EVERARDO Will dr, MD Mar 16, 2017 19:26
--- NOTE | 2017-03-16 19:29 | OPPN ---
Date/Time of Note Date/Time of Note DATE: 03/16/17 TIME: 19:26 Proc Note GI Procedure date: Mar 16, 2017 Pre-procedure Diagnosis Patient presenting with history of abdominal pain CAT scan of the abdomen showed evidence of minimal colitis rule out ischemic colitis Post-procedure Diagnosis Suboptimal preparation Operation Performed Limited colonoscopy Surgeon: EVERARDO AMEZQUITA MD Anesthesia Type: moderate sedation Estimated blood loss: none Transfusion Required: no Specimen: none Complications: no Pt Condition post procedure: stable Indications Abdominal pain and colitis noted in the CAT scan Operative\Procedure Findings Suboptimal preparation Procedure Description After informed written consent is obtained patient was ostial in the left lateral side patient was given total 2 mg Versed and 75 mcg of fentanyl as intravenous anesthesia The patient become somnolent Olympus video colonoscope was introduced into the rectum Scope was advanced to the splenic flexure Significant amount of stool was noted over the mucosa appeared normal and the scope with this and was withdrawn and the procedure was terminated plan recommend a repeat colonoscopy at a later date cc dr amezquita and EVERARDO March MD Mar 16, 2017 19:29
[2017-03-16] MEDS: PANTOPRAZOLE (EC) 40 MG TAB PO SCH (20:59)
[2017-03-16] MEDS: HYDROmorphONE 1 MG/ML SYG IV PRN (22:24)
[2017-03-17 01:40] VITALS: BP 103/51; RESP 18
[2017-03-17 05:21] LABS: BASOPHILS % 0.6 % (0.0-2.0); EOSINOPHILS # 0.2 10^3/ul (0.0-0.5); EOSINOPHILS % 2.5 % (0.0-7.0); HEMATOCRIT 30.1 % (37.0-47.0); HEMOGLOBIN 10.1 g/dl (12.0-16.0); LYMPHOCYTES # 1.3 10^3/ul (0.8-2.9); LYMPHOCYTES % 20.2 % (15.0-51.0); MEAN CORPUSCULAR HEMOGLOBIN 30.7 pg (29.0-33.0); MEAN CORPUSCULAR HGB CONC 33.6 g/dl (32.0-37.0); MEAN CORPUSCULAR VOLUME 91.5 fl (82.0-101.0); MEAN PLATELET VOLUME 10.5 fl (7.4-10.4); MONOCYTE # 0.8 10^3/ul (0.3-0.9); MONOCYTES % 12.3 % (0.0-11.0); NEUTROPHILS % 64.2 % (39.0-77.0); PLATELET COUNT 279 10^3/UL (140-415); RED BLOOD COUNT 3.29 10^6/ul (4.20-5.40); RED CELL DISTRIBUTION WIDTH 13.2 % (11.5-14.5); WHITE BLOOD COUNT 6.4 10^3/ul (4.8-10.8)
[2017-03-17] MEDS: metroNIDAZOLE 500 MG/NS (PMX) 100 ML IVPB SCH ×3 (05:37→17:56)
[2017-03-17 06:40] LABS: CALCIUM 8.7 mg/dl (8.4-10.2); CREATININE 0.93 mg/dl (0.44-1.00); POTASSIUM 3.4 mmol/L (3.5-5.1)
[2017-03-17] MEDS: METOCLOPRAMIDE 10 MG TAB PO SCH ×3 (07:13→17:56)
[2017-03-17 07:56] VITALS: BP 113/55; RESP 20
[2017-03-17] MEDS: HYDROCHLOROTHIAZIDE 12.5 MG CAP PO SCH (08:13)
[2017-03-17] MEDS: CALCIUM/VITAMIN D (500/200) TAB PO SCH ×2 (08:13→21:00)
[2017-03-17] MEDS: OXYBUTYNIN 5 MG TAB PO SCH ×4 (08:13→21:00)
[2017-03-17] MEDS: LISINOPRIL 10 MG TAB PO SCH (08:13)
[2017-03-17] MEDS: VENLAFAXINE 75 MG TABLET PO SCH (08:13)
[2017-03-17] MEDS: FAMOTIDINE 20 MG TAB PO SCH (08:13)
[2017-03-17] MEDS: SOD CHLORIDE 0.9% 1,000 ML IV SCH (13:12)
--- NOTE | 2017-03-17 13:49 | PN ---
Date/Time of Note Date/Time of Note DATE: 03/17/17 TIME: 13:46 Assessment/Plan VTE Prophylaxis VTE Prophylaxis Intervention: SCD's Lines/Catheters [facility] Type (from [facility] Peripheral IV Urinary Cath still in place: No Assessment/Plan Chief Complaint/Hosp Course Patient is status post EGD and colonoscopy last night, denies any nausea vomiting however have poor appetite. Stool for C. difficile is pending. Pending HIDA scan. Assessment/Plan -Mild hypokalemia, potassium replaced -Acute colitis, check stool for C. difficile, Dr. Mills is following in gastroenterology consultation. -Esophagitis and gastritis per EGD, continue Protonix. -Nausea vomiting, continue Zofran as needed for nausea, gentle hydration. -Hypertension, continue lisinopril -MS -Depression, continue Effexor. -Large hiatal hernia Further recommendations based on clinical course. Plan of care discussed with Dr. Alves. Problems: Exam/Review of Systems Vital Signs Vitals Vital Signs Date Time Temp Pulse Resp B/P Pulse Ox O2 Delivery O2 Flow Rate FiO2 03/17/17 07:56 98.1 83 20 113/55 99 03/16/17 19:38 Room Air 03/14/17 04:10 2.0 03/13/17 21:00 28 Intake and Output 03/16/17 03/16/17 03/17/17 15:00 23:00 07:00 Intake Total 200 ml 500 ml 1100 ml Balance 200 ml 500 ml 1100 ml Exam Constitutional: alert Head: normocephalic Neck: supple Respiratory: normal air movement Cardiovascular: nl pulses Gastrointestinal: non-tender, soft Extremities: normal pulses Results Result Diagram: 03/17/17 0446 03/17/17 0445 Results 24 hrs Laboratory Tests Test 03/16/17 15:49 03/17/17 04:45 03/17/17 04:46 Prothrombin Time 14.6 H Prothrombin Time Ratio 1.1 INR International Normalized Ratio 1.14 Sodium Level 137 Potassium Level 3.4 L Chloride Level 107 Carbon Dioxide Level 20 L Anion Gap 13 Blood Urea Nitrogen 10 Creatinine 0.93 Glucose Level 73 Calcium Level 8.7 White Blood Count 6.4 # Red Blood Count 3.29 L Hemoglobin 10.1 L Hematocrit 30.1 L Mean Corpuscular Volume 91.5 Mean Corpuscular Hemoglobin 30.7 Mean Corpuscular Hemoglobin Concent 33.6 Red Cell Distribution Width 13.2 Platelet Count 279 Mean Platelet Volume 10.5 H Neutrophils % 64.2 Lymphocytes % 20.2 Monocytes % 12.3 H Eosinophils % 2.5 Basophils % 0.6 Nucleated Red Blood Cells % 0.0 Neutrophils # (Manual) 4 Lymphocytes # 1.3 Monocytes # 0.8 Eosinophils # 0.2 Basophils # 0.0 Nucleated Red Blood Cells # 0.0 Medications Medications Current Medications Famotidine (Pepcid) 20 mg DAILY PO Last administered on 03/17/17 08:13; Admin Dose 20 MG; Start 03/14/17 at 09:00 Pantoprazole (Protonix Tab) 40 mg QHS PO Last administered on 03/16/17 20:59; Admin Dose 40 MG; Start 03/14/17 at 21:00 Calcium/Vitamin D (Oyster Shell/ Vit-D (500/200)) 1 tab BID PO Last administered on 03/17/17 08:13; Admin Dose 1 TAB; Start 03/14/17 at 09:00 Venlafaxine HCl (Effexor) 75 mg DAILY PO Last administered on 03/17/17 08:13; Admin Dose 75 MG; Start 03/14/17 at 11:30 Oxybutynin Chloride 5 mg 5 mg QID PO Last administered on 03/17/17 13:12; Admin Dose 5 MG; Start 03/14/17 at 11:00 Sodium Chloride 1,000 ml @ 50 mls/hr Q20H IV Last administered on 03/17/17 13 :12; Admin Dose 50 MLS/HR; Start 03/14/17 at 05:30 Metronidazole (Flagyl 500 Mg (Pmx)) 100 ml @ 100 mls/hr Q6 IVPB Last administered on 03/17/17 12:57; Admin Dose 100 MLS/HR; Start 03/14/17 at 06:00 Ondansetron HCl (Zofran Inj) 4 mg Q6H PRN IV NAUSEA AND/OR VOMITING Last administered on 03/16/17 07:39; Admin Dose 4 MG; Start 03/14/17 at 05:30 Hydromorphone HCl (Dilaudid) 1 mg Q4H PRN IV PAIN Last administered on 22:24; Admin Dose 1 MG; Start 03/14/17 at 06:00 Acetaminophen (Tylenol Tab) 650 mg Q6H PRN PO PAIN AND OR ELEVATED TEMP; Start 03/14/17 at 06:00 Hydrochlorothiazide (Hydrochlorothiazide) 12.5 mg DAILY PO Last administered on 03/17/17 08:13; Admin Dose 12.5 MG; Start 03/14/17 at 11:00 Lisinopril (Zestril) 10 mg DAILY PO Last administered on 03/17/17 08:13; Admin Dose 10 MG; Start 03/14/17 at 11:00 Lactulose (Enulose) 20 gm Q3 PO ; Start 03/15/17 at 21:00; Status Future Hold OFELIA FLOREZ Mar 17, 2017 13:49
[2017-03-17] MEDS ORDERED: POTASSIUM CHLORIDE 20 MEQ POWDER FOR ORAL SOLN PO ONE (14:00)
[2017-03-17 20:00] VITALS: BP 133/61; RESP 19
[2017-03-17] MEDS: PANTOPRAZOLE (EC) 40 MG TAB PO SCH (21:00)
[2017-03-18] MEDS: metroNIDAZOLE 500 MG/NS (PMX) 100 ML IVPB SCH ×3 (01:01→11:55)
[2017-03-18] MEDS: OXYBUTYNIN 5 MG TAB PO SCH ×5 (01:01→21:21)
[2017-03-18] MEDS: CALCIUM/VITAMIN D (500/200) TAB PO SCH ×3 (01:02→21:21)
[2017-03-18] MEDS: PANTOPRAZOLE (EC) 40 MG TAB PO SCH ×2 (01:03→21:21)
--- NOTE | 2017-03-18 01:24 | RADRPT ---
PROCEDURE: Hepatobiliary nuclear study. CLINICAL INDICATION: Abdominal pain. TECHNIQUE: Following the intravenous injection of 8.0 mCi of Tc99m mebrofenin, anterior scintigram s were performed at 5 minutes intervals for 90 minutes. Delayed images in the left anterior oblique , right posterior oblique, left and right lateral projections were obtained at 95 minutes. COMPARISON: None. FINDINGS: There is normal hepatic concentration and prompt clearing of isotope from the liver. There is promp t gallbladder visualization an 15 minutes. There is prompt visualization of the common bile duct an d emptying of the common bile duct. IMPRESSION: Unremarkable examination. Patent cystic and common bile ducts. .Alverto Dudley MD, Date Time Electronically viewed and signed by .Alverto Dudley MD, MD on 03/18/2017 01:24 .T/
[2017-03-18 02:00] VITALS: BP 153/70; RESP 18
[2017-03-18 05:32] LABS: BASOPHILS % 0.5 % (0.0-2.0); EOSINOPHILS # 0.2 10^3/ul (0.0-0.5); EOSINOPHILS % 2.6 % (0.0-7.0); HEMATOCRIT 32.7 % (37.0-47.0); HEMOGLOBIN 10.8 g/dl (12.0-16.0); LYMPHOCYTES # 1.6 10^3/ul (0.8-2.9); MEAN CORPUSCULAR HEMOGLOBIN 30.1 pg (29.0-33.0); MEAN CORPUSCULAR VOLUME 91.1 fl (82.0-101.0); MEAN PLATELET VOLUME 11.1 fl (7.4-10.4); MONOCYTE # 0.9 10^3/ul (0.3-0.9); MONOCYTES % 11.5 % (0.0-11.0); NEUTROPHILS % 64.1 % (39.0-77.0); PLATELET COUNT 304 10^3/UL (140-415); RED BLOOD COUNT 3.59 10^6/ul (4.20-5.40); RED CELL DISTRIBUTION WIDTH 13.2 % (11.5-14.5); WHITE BLOOD COUNT 7.6 10^3/ul (4.8-10.8)
[2017-03-18 05:59] LABS: CALCIUM 8.9 mg/dl (8.4-10.2); CREATININE 0.98 mg/dl (0.44-1.00); POTASSIUM 3.8 mmol/L (3.5-5.1)
[2017-03-18 07:45] VITALS: BP 128/64; RESP 20
[2017-03-18] MEDS: METOCLOPRAMIDE 10 MG TAB PO SCH ×3 (08:58→17:42)
[2017-03-18] MEDS: VENLAFAXINE 75 MG TABLET PO SCH (08:58)
[2017-03-18] MEDS: LISINOPRIL 10 MG TAB PO SCH (08:59)
[2017-03-18] MEDS: FAMOTIDINE 20 MG TAB PO SCH (08:59)
[2017-03-18] MEDS: HYDROCHLOROTHIAZIDE 12.5 MG CAP PO SCH (08:59)
[2017-03-18 15:31] VITALS: BP 129/62; RESP 18
--- NOTE | 2017-03-18 15:40 | PN ---
Date/Time of Note Date/Time of Note DATE: 03/18/17 TIME: 15:36 Assessment/Plan VTE Prophylaxis VTE Prophylaxis Intervention: other Lines/Catheters IV [facility] Type (from [facility] Peripheral IV Urinary Cath still in place: No Assessment/Plan Assessment/Plan -Mild hypokalemia, potassium replaced -Acute colitis, check stool for C. difficile, Dr. Mills is following in gastroenterology consultation. -Esophagitis and gastritis per EGD, continue Protonix. -Nausea vomiting, continue Zofran as needed for nausea, gentle hydration. -Hypertension, continue lisinopril -MS -Depression, continue Effexor. -Large hiatal hernia Further recommendations based on clinical course. Plan of care discussed with Dr. Alves. Subjective 24 Hr Interval Summary Free Text/Dictation Patient is status post EGD and colonoscopy yesterday denies any nausea vomiting. Stool for C. difficile is pending. HIDA scan WNL. Dw staff. Respiratory: no complaints Cardiovascular: no complaints Musculoskeletal: no complaints Exam/Review of Systems Vital Signs Vitals Vital Signs Date Time Temp Pulse Resp B/P Pulse Ox O2 Delivery O2 Flow Rate FiO2 03/18/17 15:31 97.9 73 18 129/62 99 03/16/17 19:38 Room Air Intake and Output 03/17/17 03/17/17 03/18/17 15:00 23:00 07:00 Intake Total 100 ml 1260 ml 650 ml Output Total 800 ml 700 ml Balance 100 ml 460 ml -50 ml Exam Constitutional: alert, well developed ENMT: nl external ears & nose, nl lips & teeth Respiratory: clear to auscultation, normal air movement Cardiovascular: nl pulses, regular rate and rhythm Gastrointestinal: soft, tender Musculoskeletal: nl extremities to inspection Neurological: nl mental status, nl speech Results Result Diagram: 03/18/17 0434 03/18/17 0434 Results 24 hrs Laboratory Tests Test 03/18/17 04:34 White Blood Count 7.6 Red Blood Count 3.59 L Hemoglobin 10.8 L Hematocrit 32.7 L Mean Corpuscular Volume 91.1 Mean Corpuscular Hemoglobin 30.1 Mean Corpuscular Hemoglobin Concent 33.0 Red Cell Distribution Width 13.2 Platelet Count 304 Mean Platelet Volume 11.1 H Neutrophils % 64.1 Lymphocytes % 21.0 Monocytes % 11.5 H Eosinophils % 2.6 Basophils % 0.5 Nucleated Red Blood Cells % 0.0 Neutrophils # (Manual) 5 Lymphocytes # 1.6 Monocytes # 0.9 Eosinophils # 0.2 Basophils # 0.0 Nucleated Red Blood Cells # 0.0 Sodium Level 138 Potassium Level 3.8 Chloride Level 105 Carbon Dioxide Level 20 L Anion Gap 17 H Blood Urea Nitrogen 10 Creatinine 0.98 Glucose Level 83 Calcium Level 8.9 Medications Medications Current Medications Famotidine (Pepcid) 20 mg DAILY PO Last administered on 03/18/17 08:59; Admin Dose 20 MG; Start 03/14/17 at 09:00 Pantoprazole (Protonix Tab) 40 mg QHS PO Last administered on 03/18/17 01:03; Admin Dose 40 MG; Start 03/14/17 at 21:00 Calcium/Vitamin D (Oyster Shell/ Vit-D (500/200)) 1 tab BID PO Last administered on 03/18/17 08:59; Admin Dose 1 TAB; Start 03/14/17 at 09:00 Venlafaxine HCl (Effexor) 75 mg DAILY PO Last administered on 03/18/17 08:58; Admin Dose 75 MG; Start 03/14/17 at 11:30 Oxybutynin Chloride 5 mg 5 mg QID PO Last administered on 03/18/17 12:40; Admin Dose 5 MG; Start 03/14/17 at 11:00 Sodium Chloride 1,000 ml @ 50 mls/hr Q20H IV Last administered on 03/17/17 13 :12; Admin Dose 50 MLS/HR; Start 03/14/17 at 05:30 Metronidazole (Flagyl 500 Mg (Pmx)) 100 ml @ 100 mls/hr Q6 IVPB Last administered on 03/18/17 11:55; Admin Dose 100 MLS/HR; Start 03/14/17 at 06:00 Ondansetron HCl (Zofran Inj) 4 mg Q6H PRN IV NAUSEA AND/OR VOMITING Last administered on 03/16/17 07:39; Admin Dose 4 MG; Start 03/14/17 at 05:30 Hydromorphone HCl (Dilaudid) 1 mg Q4H PRN IV PAIN Last administered on 22:24; Admin Dose 1 MG; Start 03/14/17 at 06:00 Acetaminophen (Tylenol Tab) 650 mg Q6H PRN PO PAIN AND OR ELEVATED TEMP; Start 03/14/17 at 06:00 Hydrochlorothiazide (Hydrochlorothiazide) 12.5 mg DAILY PO Last administered on 03/18/17 08:59; Admin Dose 12.5 MG; Start 03/14/17 at 11:00 Lisinopril (Zestril) 10 mg DAILY PO Last administered on 03/18/17 08:59; Admin Dose 10 MG; Start 03/14/17 at 11:00 Lactulose (Enulose) 20 gm Q3 PO ; Start 03/15/17 at 21:00; Status Future Hold KARIS RODAS Mar 18, 2017 15:39
--- NOTE | 2017-03-18 17:20 | PN ---
DATE: 03/18/2017 SUBJECTIVE DATA: Patient is complaining of neck pain since yesterday. Denied shortness of breath. No reported chest pain. OBJECTIVE DATA: The patient does have tender swelling on right side of her neck medially. ASSESSMENT AND PLAN: We will obtain CT of the neck for further evaluation. It could be acute sialadenitis or lymphadenitis We will empirically start her on IV Unasyn.Patient may require ENT evaluation also depending upon results of the study and patient's response to the treatment. Dictated By: Germain Alves MD /phoebe/coco /Document#: [id number] NELLY
[2017-03-18] MEDS: SOD CHLORIDE 0.9% 1,000 ML IV SCH (17:47)
[2017-03-18] MEDS: AMPICILLIN/SULB 1.5GM/NS (PMX) 50 ML IVPB SCH ×2 (18:40→23:50)
[2017-03-18] MEDS ORDERED: IOHEXOL 300MG/ML 150 ML BTL ONE (19:56)
[2017-03-18] MEDS ORDERED: SOD CHLORIDE 0.9% 100 ML ONE (19:56)
[2017-03-18 19:59] VITALS: BP 144/67; RESP 21
--- NOTE | 2017-03-18 22:14 | PN ---
DATE: 03/18/2017 Progress note CHIEF COMPLAINT: Abdominal pain which is much better now since admission. The workup showed that she has evidence of gallstones on the ultrasound, with elevated alkaline phosphatase. MRCP negative for CBD stones. HIDA scan negative for cystic duct obstruction. OBJECTIVE DATA: On examination, abdomen is soft and nontender. The WBC count is not significantly elevated. However, I believe that she was admitted to the hospital with abdominal pain secondary to cholecystitis. PLAN: At this time wound recommend surgical consultation. Dictated By: Jose Luis Mills MD /phoebe/ /Document#: [id number] CC: Germain Alves MD;*[facility]*
--- NOTE | 2017-03-18 22:37 | RADRPT ---
PROCEDURE: CT Neck with contrast. CLINICAL INDICATION: Midline neck swelling. TECHNIQUE: The study was performed utilizing a multislice multidetector CT scanner. Direct spiral 1 mm axial sections were obtained through the neck with the use of with the use of intravenous contr ast material. 60 cc of Omnipaque 300 was utilized. Coronal and sagittal as well as maximal intensi ty projection reformations were obtained. The images were reviewed on a PACS workstation. RADIATION DOSE: CTDIvol: 11.7 mGyDLP: 232.6 mGy-cm COMPARISON: No prior studies are available for comparison. FINDINGS: The nasopharynx, oropharynx and hypopharynx are normal in appearance. There is no tongue base mass. The larynx is normal in appearance. This is a 6 mm area of hypo enhancing cyst in the right thyro id gland,. The parotid, submandibular and left thyroid glands are normal in appearance. No enlarge d cervical lymph nodes are seen. The vascular structures are normal. The paranasal sinuses and orb its are normal. Limited visualization of the intracranial contents is unremarkable. There are mult ilevel moderate to severe degenerative changes of the cervical spine. The lung apices are normal in appearance. IMPRESSION: 1. Moderate to severe spondylosis throughout the cervical spine. 2. Otherwise, normal CT of the neck soft tissues. No mass lesion, lymphadenopathy or abnormal flui d collection. No mass lesion is seen in the midline neck. RPTAT: HGAS .Allan Woodruff MD, Date Time Electronically viewed and signed by .Allan Woodruff MD, on 03/18/2017 22:36 .S/
[2017-03-19] MEDS: AMPICILLIN/SULB 1.5GM/NS (PMX) 50 ML IVPB SCH ×3 (05:17→18:04)
[2017-03-19] MEDS: SOD CHLORIDE 0.9% 1,000 ML IV SCH ×2 (05:18→18:59)
[2017-03-19 05:24] LABS: BASOPHILS % 0.6 % (0.0-2.0); EOSINOPHILS # 0.3 10^3/ul (0.0-0.5); EOSINOPHILS % 4.5 % (0.0-7.0); HEMATOCRIT 32.1 % (37.0-47.0); HEMOGLOBIN 10.8 g/dl (12.0-16.0); LYMPHOCYTES # 1.4 10^3/ul (0.8-2.9); MEAN CORPUSCULAR HEMOGLOBIN 29.8 pg (29.0-33.0); MEAN CORPUSCULAR HGB CONC 33.6 g/dl (32.0-37.0); MEAN CORPUSCULAR VOLUME 88.4 fl (82.0-101.0); MEAN PLATELET VOLUME 10.7 fl (7.4-10.4); MONOCYTE # 0.8 10^3/ul (0.3-0.9); MONOCYTES % 11.5 % (0.0-11.0); PLATELET COUNT 314 10^3/UL (140-415); RED BLOOD COUNT 3.63 10^6/ul (4.20-5.40); RED CELL DISTRIBUTION WIDTH 13.1 % (11.5-14.5); WHITE BLOOD COUNT 6.7 10^3/ul (4.8-10.8)
[2017-03-19 05:45] LABS: CREATININE 0.91 mg/dl (0.44-1.00); POTASSIUM 3.3 mmol/L (3.5-5.1)
[2017-03-19 07:58] VITALS: BP 135/63; RESP 16
[2017-03-19] MEDS: VENLAFAXINE 75 MG TABLET PO SCH (08:32)
[2017-03-19] MEDS: HYDROCHLOROTHIAZIDE 12.5 MG CAP PO SCH (08:32)
[2017-03-19] MEDS: METOCLOPRAMIDE 10 MG TAB PO SCH ×3 (08:33→18:04)
[2017-03-19] MEDS: CALCIUM/VITAMIN D (500/200) TAB PO SCH ×2 (08:33→20:37)
[2017-03-19] MEDS: OXYBUTYNIN 5 MG TAB PO SCH ×4 (08:33→20:37)
[2017-03-19] MEDS: LISINOPRIL 10 MG TAB PO SCH (08:33)
[2017-03-19] MEDS ORDERED: VITAMIN A & D 5 GM OINT PACKET TOP ONE (11:48)
[2017-03-19 14:00] VITALS: BP 127/76; RESP 15
--- NOTE | 2017-03-19 15:21 | PN ---
Date/Time of Note Date/Time of Note DATE: 03/19/17 TIME: 15:14 Assessment/Plan VTE Prophylaxis VTE Prophylaxis Intervention: SCD's Lines/Catheters IV [facility]ter Type (from [facility]): Peripheral IV Urinary Cath still in place: No Assessment/Plan Chief Complaint/Hosp Course Stool for C. difficile was ordered on Saturday 01/13, however, still pending, follow-up stool for C. difficile. Assessment/Plan -Acute colitis, check stool for C. difficile, Dr. Mills is following in gastroenterology consultation. HIDA scan is negative. -Possible cholecystitis. Continue antibiotics. Dr. Cortes is asked to see patient in general surgery consultation. -Esophagitis and gastritis per EGD, continue Protonix. -Nausea vomiting, continue Zofran as needed for nausea, gentle hydration. -Neck pain, cervical CT is negative for any acute abnormality. -Hypertension, continue lisinopril -MS -Depression, continue Effexor. -Large hiatal hernia Further recommendations based on clinical course. Plan of care discussed with Dr. Alves. Problems: Exam/Review of Systems Vital Signs Vitals Vital Signs Date Time Temp Pulse Resp B/P Pulse Ox O2 Delivery O2 Flow Rate FiO2 03/19/17 14:00 98.7 71 15 127/76 96 03/16/17 19:38 Room Air Intake and Output 03/18/17 03/18/17 03/19/17 15:00 23:00 07:00 Intake Total 200 ml 950 ml 900 ml Output Total 550 ml 1350 ml Balance 200 ml 400 ml -450 ml Exam Constitutional: alert Head: normocephalic Neck: supple Respiratory: normal air movement Cardiovascular: nl pulses Gastrointestinal: non-tender, soft Extremities: normal pulses Results Result Diagram: 03/19/17 0430 03/19/17 0430 Results 24 hrs Laboratory Tests Test 03/19/17 04:30 White Blood Count 6.7 Red Blood Count 3.63 L Hemoglobin 10.8 L Hematocrit 32.1 L Mean Corpuscular Volume 88.4 Mean Corpuscular Hemoglobin 29.8 Mean Corpuscular Hemoglobin Concent 33.6 Red Cell Distribution Width 13.1 Platelet Count 314 Mean Platelet Volume 10.7 H Neutrophils % 62.0 Lymphocytes % 21.0 Monocytes % 11.5 H Eosinophils % 4.5 Basophils % 0.6 Nucleated Red Blood Cells % 0.0 Neutrophils # (Manual) 4.1 Lymphocytes # 1.4 Monocytes # 0.8 Eosinophils # 0.3 Basophils # 0.0 Nucleated Red Blood Cells # 0.0 Sodium Level 136 Potassium Level 3.3 L Chloride Level 101 Carbon Dioxide Level 20 L Anion Gap 18 H Blood Urea Nitrogen 9 Creatinine 0.91 Glucose Level 85 Calcium Level 9.0 Medications Medications Current Medications Pantoprazole (Protonix Tab) 40 mg QHS PO Last administered on 03/18/17 21:21; Admin Dose 40 MG; Start 03/14/17 at 21:00 Calcium/Vitamin D (Oyster Shell/ Vit-D (500/200)) 1 tab BID PO Last administered on 03/19/17 08:33; Admin Dose 1 TAB; Start 03/14/17 at 09:00 Venlafaxine HCl (Effexor) 75 mg DAILY PO Last administered on 03/19/17 08:32; Admin Dose 75 MG; Start 03/14/17 at 11:30 Oxybutynin Chloride 5 mg 5 mg QID PO Last administered on 03/19/17 13:18; Admin Dose 5 MG; Start 03/14/17 at 11:00 Sodium Chloride (NS) 1,000 ml @ 50 mls/hr Q20H IV Last administered on 17:47; Admin Dose 50 MLS/HR; Start 03/14/17 at 05:30 Ondansetron HCl (Zofran Inj) 4 mg Q6H PRN IV NAUSEA AND/OR VOMITING Last administered on 03/16/17 07:39; Admin Dose 4 MG; Start 03/14/17 at 05:30 Hydromorphone HCl (Dilaudid) 1 mg Q4H PRN IV PAIN Last administered on 22:24; Admin Dose 1 MG; Start 03/14/17 at 06:00 Acetaminophen (Tylenol Tab) 650 mg Q6H PRN PO PAIN AND OR ELEVATED TEMP; Start 03/14/17 at 06:00 Hydrochlorothiazide (Hydrochlorothiazide) 12.5 mg DAILY PO Last administered on 03/19/17 08:32; Admin Dose 12.5 MG; Start 03/14/17 at 11:00 Lisinopril (Zestril) 10 mg DAILY PO Last administered on 03/19/17 08:33; Admin Dose 10 MG; Start 03/14/17 at 11:00 Lactulose 20 gm 20 gm Q3 PO ; Start 03/15/17 at 21:00; Status Future Hold Ampicillin Sodium/ Sulbactam Sodium (Unasyn 1.5gm/NS (Pmx)) 50 ml @ 100 mls/hr Q6 IVPB Last administered on 03/19/17 13:17; Admin Dose 100 MLS/HR; Start at 18:00 OFELIA FLOREZ Mar 19, 2017 15:20
[2017-03-19] MEDS ORDERED: POTASSIUM CHLORIDE 20 MEQ POWDER FOR ORAL SOLN PO ONE (15:30)
[2017-03-19 19:29] VITALS: BP 143/64; RESP 22
[2017-03-19] MEDS: PANTOPRAZOLE (EC) 40 MG TAB PO SCH (20:37)
[2017-03-20 02:00] VITALS: BP 129/74; PULSE 75; RESP 16
[2017-03-20 05:28] LABS: BASOPHILS % 0.4 % (0.0-2.0); EOSINOPHILS # 0.3 10^3/ul (0.0-0.5); HEMATOCRIT 34.3 % (37.0-47.0); HEMOGLOBIN 11.3 g/dl (12.0-16.0); LYMPHOCYTES # 0.9 10^3/ul (0.8-2.9); LYMPHOCYTES % 12.1 % (15.0-51.0); MEAN CORPUSCULAR HGB CONC 32.9 g/dl (32.0-37.0); MEAN PLATELET VOLUME 10.6 fl (7.4-10.4); MONOCYTE # 0.9 10^3/ul (0.3-0.9); MONOCYTES % 12.8 % (0.0-11.0); NEUTROPHILS % 70.4 % (39.0-77.0); PLATELET COUNT 273 10^3/UL (140-415); RED BLOOD COUNT 3.77 10^6/ul (4.20-5.40); RED CELL DISTRIBUTION WIDTH 13.2 % (11.5-14.5); WHITE BLOOD COUNT 7.3 10^3/ul (4.8-10.8)
[2017-03-20 05:43] LABS: CALCIUM 8.9 mg/dl (8.4-10.2); CREATININE 0.94 mg/dl (0.44-1.00); POTASSIUM 4.1 mmol/L (3.5-5.1)
[2017-03-20] MEDS: METOCLOPRAMIDE 10 MG TAB PO SCH ×2 (06:44→11:10)
[2017-03-20] MEDS: AMPICILLIN/SULB 1.5GM/NS (PMX) 50 ML IVPB SCH ×4 (06:45→18:14)
[2017-03-20 08:30] VITALS: BP 160/67; RESP 18
[2017-03-20] MEDS: OXYBUTYNIN 5 MG TAB PO SCH ×4 (09:00→20:55)
[2017-03-20] MEDS: CALCIUM/VITAMIN D (500/200) TAB PO SCH ×2 (09:19→20:55)
[2017-03-20] MEDS: LISINOPRIL 10 MG TAB PO SCH (09:19)
[2017-03-20] MEDS: VENLAFAXINE 75 MG TABLET PO SCH (09:19)
[2017-03-20] MEDS: HYDROCHLOROTHIAZIDE 12.5 MG CAP PO SCH (09:19)
--- NOTE | 2017-03-20 13:37 | CONS ---
Date/Time of Note Date/Time of Note DATE: 03/20/17 TIME: 13:35 Consultation Date/Type/Reason Admit Date/Time Mar 14, 2017 at 01:22 Type of Consultation: gi Reason for Consultation colitis 24 HR Interval Summary Free Text/Dictation feeling well egd gastritis large hiatal hernia colonoscopy [poor prep has soft stools has gall stones seen by surgeon] Exam/Review of Systems Vital Signs Vitals Vital Signs Date Time Temp Pulse Resp B/P Pulse Ox O2 Delivery O2 Flow Rate FiO2 03/20/17 08:30 98.0 85 18 160/67 97 03/16/17 19:38 Room Air Intake and Output 03/19/17 03/19/17 03/20/17 15:00 23:00 07:00 Intake Total 50 ml 1130 ml 510 ml Output Total 1200 ml Balance 50 ml -70 ml 510 ml Results Result Diagram: 03/20/17 0500 03/20/17 0420 Results 24 hrs Laboratory Tests Test 03/20/17 04:20 03/20/17 05:00 Sodium Level 142 Potassium Level 4.1 Chloride Level 103 Carbon Dioxide Level 24 Anion Gap 19 H Blood Urea Nitrogen 6 L Creatinine 0.94 Glucose Level 89 Calcium Level 8.9 White Blood Count 7.3 Red Blood Count 3.77 L Hemoglobin 11.3 L Hematocrit 34.3 L Mean Corpuscular Volume 91.0 Mean Corpuscular Hemoglobin 30.0 Mean Corpuscular Hemoglobin Concent 32.9 Red Cell Distribution Width 13.2 Platelet Count 273 Mean Platelet Volume 10.6 H Neutrophils % 70.4 Lymphocytes % 12.1 L Monocytes % 12.8 H Eosinophils % 4.0 Basophils % 0.4 Nucleated Red Blood Cells % 0.0 Neutrophils # (Manual) 5.1 Lymphocytes # 0.9 Monocytes # 0.9 Eosinophils # 0.3 Basophils # 0.0 Nucleated Red Blood Cells # 0.0 Medications Medications Current Medications Pantoprazole (Protonix Tab) 40 mg QHS PO Last administered on 03/19/17 20:37; Admin Dose 40 MG; Start 03/14/17 at 21:00 Calcium/Vitamin D (Oyster Shell/ Vit-D (500/200)) 1 tab BID PO Last administered on 03/20/17 09:19; Admin Dose 1 TAB; Start 03/14/17 at 09:00 Venlafaxine HCl (Effexor) 75 mg DAILY PO Last administered on 03/20/17 09:19; Admin Dose 75 MG; Start 03/14/17 at 11:30 Oxybutynin Chloride 5 mg 5 mg QID PO Last administered on 03/20/17 12:53; Admin Dose 5 MG; Start 03/14/17 at 11:00 Sodium Chloride (NS) 1,000 ml @ 50 mls/hr Q20H IV Last administered on 18:59; Admin Dose 50 MLS/HR; Start 03/14/17 at 05:30 Ondansetron HCl (Zofran Inj) 4 mg Q6H PRN IV NAUSEA AND/OR VOMITING Last administered on 03/16/17 07:39; Admin Dose 4 MG; Start 03/14/17 at 05:30 Hydromorphone HCl (Dilaudid) 1 mg Q4H PRN IV PAIN Last administered on 22:24; Admin Dose 1 MG; Start 03/14/17 at 06:00 Acetaminophen (Tylenol Tab) 650 mg Q6H PRN PO PAIN AND OR ELEVATED TEMP; Start 03/14/17 at 06:00 Hydrochlorothiazide (Hydrochlorothiazide) 12.5 mg DAILY PO Last administered on 03/20/17 09:19; Admin Dose 12.5 MG; Start 03/14/17 at 11:00 Lisinopril (Zestril) 10 mg DAILY PO Last administered on 03/20/17 09:19; Admin Dose 10 MG; Start 03/14/17 at 11:00 Lactulose 20 gm 20 gm Q3 PO ; Start 03/15/17 at 21:00; Status Future Hold Ampicillin Sodium/ Sulbactam Sodium (Unasyn 1.5gm/NS (Pmx)) 50 ml @ 100 mls/hr Q6 IVPB Last administered on 03/20/17 13:02; Admin Dose 100 MLS/HR; Start at 18:00 EVERARDO AMEZQUITA MD Mar 20, 2017 13:37
[2017-03-20 14:00] VITALS: BP 144/65; RESP 18
--- NOTE | 2017-03-20 14:10 | CONS ---
DATE OF ADMISSION: 03/14/2017 DATE OF CONSULTATION: 03/19/2017 TYPE OF CONSULTATION: Surgical. REFERRING PHYSICIAN: Dr. Alves and Dr. Barrera from Dr. Maravilla and I am seeing in consultation for Dr. Maravilla. REASON FOR CONSULTATION: Gallstones and abdominal pain. Thank you, Dr. Alves, for consultation. HISTORY OF PRESENT ILLNESS: This is a 76-year-old female, who presented to the emergency room on March 13, 2017, complaining of severe suprapubic pain, periumbilical constant abdominal pain for about 3 days' duration associated with some nausea, and no vomiting. She had had the desire to go to the bathroom, but she has been constipated. She denies, of course, diarrhea. No chest pain. No shortness of breath. No fever. So, she was seen in emergency room, and CT scan and blood test were done. The CBC in the emergency room revealed that the patient had leukocytosis of 19,200, with 85 percent segmented, hemoglobin 13.1, . Chemistry showed BUN 29, creatinine 1.14 with slightly elevated alkaline phosphatase to 138. CT scan of the abdomen and pelvis was performed, which was read as follows by the radiologist: 1. Thickening of the [id number] descending colon, likely due to focal colitis. Diverticulitis is felt to be somewhat less likely since the segmental involvement is greater than typically seen and no definite diverticula are seen along the thickened colon. 2. Mild sigmoid colonic diverticulosis. 3. Large hiatal hernia containing the stomach and most of the pancreas. 4. Nonspecific gallbladder distention. There is a small stone in the gallbladder. 5. Precentral abdominal ascites. So the patient is with the impression of colitis, was started antibiotics Flagyl and ceftriaxone and was admitted for further evaluation and treatment. PAST MEDICAL HISTORY/PAST SURGICAL HISTORY: Patient has history of bilateral rotator cuff operation on the right side x2, on the left side x1. History of the knee surgery. History of fall and damage to the front of the face and frontal face surgeries 3 years ago. Left kidney surgery to remove the stone. Total abdominal hysterectomy, bilateral salpingo-oophorectomy. History of MS diagnosed many, many years ago and patient has been on treatment up to 2 years ago. History of high blood pressure for the past 15 years. . Recently has been using medical marijuana liquid for pain, lower back. MEDICATION: Please refer to reconciliation form. ALLERGIES: ASPIRIN, PATIENT STATES THAT IT CAUSES SUBCUTANEOUS BLEEDING FOR HER. GABAPENTIN IS ANOTHER MEDICATION. HYDROCODONE, HAS BEEN DOCUMENTED AN ALLERGIC MEDICATION. PHYSICAL EXAMINATION: GENERAL: Today, March 19, 2017, I saw the patient in room 426. The patient is alert, oriented x3, lying down in bed, states that the lower abdominal pain is about 95 percent better, but if she coughs, she feels some comfortableness. VITAL SIGNS: Temperature 98.7, heart rate 71, regular; respirations 16, blood pressure 127/76, saturation 96 percent on room air. HEAD AND NECK: There is a slight deformity of the face, some depression on the left side, which is probably due to the fall and broken facial bones. Eyes: Pupils equally round, reactive to light and accommodation. Extraocular muscles full range of motion. She can open her mouth symmetrical. Movement of the tongue is symmetrical and tongue is moist. Trachea is in midline. There is no carotid bruit. BREAST: Examination was deferred, but she has not had a mammogram in past 2-3 years. HEART: Regular rhythm. ABDOMEN: Some fat folds present. It is not distended. Bowel sounds are hyperactive. There is no tenderness in upper quadrants. There is some mild fullness in the suprapubic area, midline below the umbilicus. The patient feels a little bit uncomfortable on deep pressure. No guarding. EXTREMITIES: Lower extremity: Patient can move knees and both hips. There is no pitting edema. Dorsalis pedis pulses, I cannot feel them bilaterally. It should be mentioned that patient denies fatty food intolerance at all. LABORATORY: Sodium 136, potassium 3.3, BUN is 9, creatinine 0.91. WBC 6700, with 62 percent segmented; hemoglobin has dropped to 10.8, hematocrit 32. As was mentioned in the CT scan, patient has thickening of the descending colon and also presence of scattered diverticula in the sigmoid colon, and no gross evidence of diverticulitis, but possibility given the colitis as mentioned. The gallbladder CT scan showed a slightly distended, and then the HIDA scan was performed, and MRI was performed revealed, which distended gallbladder, which is only 7.5 cm in the length, large stones at least as mentioned, one of them 2 cm. The cystic duct is open, common bile duct not dilated. HIDA scan was done, which was read as follows: . There is prompt gallbladder visualization at 15 minutes. There was prompt visualization of the common bile duct and filling of the common bile duct. Patent cystic and common bile duct have been seen. ASSESSMENT AND PLAN: A 76-year-old female, who started having lower constant abdominal pain for about 3 days before coming to the emergency room, but she states that the pain got so severe, and constant, of course, so much so she could not tolerate it and had some nausea, so came to the emergency room on the and the above-mentioned tests were done, which showed significant leukocytosis 19,[address] scan, which showed thickened descending colon, and presence of some diverticula in the sigmoid colon. Of course, meanwhile in the presence of more investigations, patient was found to have a gallbladder, which has a stone, but no thickening of the wall of the gallbladder as mentioned and patient's cystic duct was shown to be open on the HIDA scan, and of course, on CT scan, they found that there was a large hiatal hernia for the patient. Again, when I asked the patient about fatty food intolerance, she denies fatty food intolerance, and she states that she can eat any kind of food and without any problem. GI colleague, Dr. Mills was consulted to see the patient. He did an esophagogastroduodenoscopy, which found a hiatal hernia, but otherwise there was no reflux esophagitis. He tried to do a colonoscopy but per his notes, the colon was not prepped and he could not really see that much of the colon. So, I think the following problems for the patient exist: 1. Large hiatal hernia. 2. Hypertension. 3. History of multiple sclerosis. 4. Asymptomatic gallstones. 5. Thickened descending colon, which has not been investigated properly. 6. Sigmoid diverticulosis. RECOMMENDATION: Of course, the patient has been started by Dr. Alves on antibiotic 1.5 g of unasyn q.6 hours for coverage of most probably colitis. The patient at this time does not have acute cholecystitis and per history, appears that patient is not symptomatic from gallstones at this time. I think the recent pain that brought the patient to the emergency room, which apparently was a constant pain, and is below the umbilicus and down to the pubic area is most probably from sigmoid and descending colon, with the impression of probably mild sigmoid diverticulitis and descending colitis. Therefore, this patient should thoroughly treated for these 2 problems and also colonoscopy has to be repeated most probably preferably before the patient leaves the hospital to make sure if there is any other pathology in the colon and patient may have cholecystectomy on an elective basis later on. I will discuss with Dr. Alves and we will make further plans in the future days. Dictated By: Michael Maloney MD /[email or web address]/ada /Document#: [id number] NELLY
--- NOTE | 2017-03-20 14:21 | PN ---
Date/Time of Note Date/Time of Note DATE: 03/20/17 TIME: 14:06 Assessment/Plan VTE Prophylaxis VTE Prophylaxis Intervention: ambulation, SCD's Lines/Catheters [facility] Peripheral IV Urinary Cath still in place: No Assessment/Plan Assessment/Plan 76 years old female presented to the emergency room complaining of lower abdominal pain constant for 3 days evaluation. Was found in the emergency room to have leukocyte count of 19,005 which shift to the left. CT scan of the abdomen showed presence of some diverticuli in the sigmoid colon and also thickening of the descending colon per radiology is compatible with localized colitis. Meanwhile CT scan revealed also presence of a stone in the gallbladder. The MRCP did not show evidence of acute cholecystitis but showed few large stone in the gallbladder. So the HIDA scan did not show evidence of obstruction of the cystic duct. Consultation for evaluation of the gallbladder was requested. States that she does not have any problem eating any kind of food especially fatty foods, As a surgical consult I do not believe that this admission the patient's problem was due to the gallbladder, though she was found to have a stones in the gallbladder. I believe that the patient's problem originates either from the left colon or sigmoid colon, though Dr. cabrera the GI colleague states that on colonoscopy he did not see any evidence of colitis or diverticulitis. In any case Dr. patient is started on Unasyn by Dr. metcalf 2 days ago, for adenitis of the right side of the neck. But appears is also helping the bowel and abdominal pain as well. Since the colonoscopy has not been complete because of inadequate bowel prep, recommend that the patient should have colonoscopy repeated in future. Of course she can have cholecystectomy as a elective procedure because on this admission the HIDA scan and the MRCP did not show any evidence of acute cholecystitis. Will discuss with Dr. Zepeda. Subjective 24 Hr Interval Summary Free Text/Dictation Feels better. Abdominal pain almost resolved. States that whenever she goes to the bathroom to urinate she has bowel movement which is soft. Stool for C. difficile has been negative. She is on Unasyn every 6 hours. Exam/Review of Systems Vital Signs Vitals Vital Signs Date Time Temp Pulse Resp B/P Pulse Ox O2 Delivery O2 Flow Rate FiO2 03/20/17 08:30 98.0 85 18 160/67 97 03/16/17 19:38 Room Air Intake and Output 03/19/17 03/19/17 03/20/17 15:00 23:00 07:00 Intake Total 50 ml 1130 ml 510 ml Output Total 1200 ml Balance 50 ml -70 ml 510 ml Exam Awake alert oriented 3. Sitting in the chair. Been afebrile. Size 7300 with normal differential today. Abdomen is soft. Feels a slightly uncomfortable and pushing over the abdomen suprapubically. Results Result Diagram: 03/20/17 0500 03/20/17 0420 Results 24 hrs Laboratory Tests Test 03/20/17 04:20 03/20/17 05:00 Sodium Level 142 Potassium Level 4.1 Chloride Level 103 Carbon Dioxide Level 24 Anion Gap 19 H Blood Urea Nitrogen 6 L Creatinine 0.94 Glucose Level 89 Calcium Level 8.9 White Blood Count 7.3 Red Blood Count 3.77 L Hemoglobin 11.3 L Hematocrit 34.3 L Mean Corpuscular Volume 91.0 Mean Corpuscular Hemoglobin 30.0 Mean Corpuscular Hemoglobin Concent 32.9 Red Cell Distribution Width 13.2 Platelet Count 273 Mean Platelet Volume 10.6 H Neutrophils % 70.4 Lymphocytes % 12.1 L Monocytes % 12.8 H Eosinophils % 4.0 Basophils % 0.4 Nucleated Red Blood Cells % 0.0 Neutrophils # (Manual) 5.1 Lymphocytes # 0.9 Monocytes # 0.9 Eosinophils # 0.3 Basophils # 0.0 Nucleated Red Blood Cells # 0.0 Medications Medications Current Medications Pantoprazole (Protonix Tab) 40 mg QHS PO Last administered on 03/19/17 20:37; Admin Dose 40 MG; Start 03/14/17 at 21:00 Calcium/Vitamin D (Oyster Shell/ Vit-D (500/200)) 1 tab BID PO Last administered on 03/20/17 09:19; Admin Dose 1 TAB; Start 03/14/17 at 09:00 Venlafaxine HCl (Effexor) 75 mg DAILY PO Last administered on 03/20/17 09:19; Admin Dose 75 MG; Start 03/14/17 at 11:30 Oxybutynin Chloride 5 mg 5 mg QID PO Last administered on 03/20/17 12:53; Admin Dose 5 MG; Start 03/14/17 at 11:00 Sodium Chloride (NS) 1,000 ml @ 50 mls/hr Q20H IV Last administered on 18:59; Admin Dose 50 MLS/HR; Start 03/14/17 at 05:30 Ondansetron HCl (Zofran Inj) 4 mg Q6H PRN IV NAUSEA AND/OR VOMITING Last administered on 03/16/17 07:39; Admin Dose 4 MG; Start 03/14/17 at 05:30 Hydromorphone HCl (Dilaudid) 1 mg Q4H PRN IV PAIN Last administered on 22:24; Admin Dose 1 MG; Start 03/14/17 at 06:00 Acetaminophen (Tylenol Tab) 650 mg Q6H PRN PO PAIN AND OR ELEVATED TEMP; Start 03/14/17 at 06:00 Hydrochlorothiazide (Hydrochlorothiazide) 12.5 mg DAILY PO Last administered on 03/20/17 09:19; Admin Dose 12.5 MG; Start 03/14/17 at 11:00 Lisinopril (Zestril) 10 mg DAILY PO Last administered on 03/20/17 09:19; Admin Dose 10 MG; Start 03/14/17 at 11:00 Lactulose 20 gm 20 gm Q3 PO ; Start 03/15/17 at 21:00; Status Future Hold Ampicillin Sodium/ Sulbactam Sodium (Unasyn 1.5gm/NS (Pmx)) 50 ml @ 100 mls/hr Q6 IVPB Last administered on 03/20/17 13:02; Admin Dose 100 MLS/HR; Start at 18:00 RODNEY MCINTOSH MD Mar 20, 2017 14:20
--- NOTE | 2017-03-20 15:44 | PN ---
Date/Time of Note Date/Time of Note DATE: 03/20/17 TIME: 15:42 Assessment/Plan VTE Prophylaxis VTE Prophylaxis Intervention: other Lines/Catheters IV [facility] Type (from [facility]): Peripheral IV Urinary Cath still in place: No Assessment/Plan Assessment/Plan -Acute colitis, check stool for C. difficile, Dr. Mills is following in gastroenterology consultation. HIDA scan is negative. -Possible cholecystitis. Continue antibiotics. - per Dr Maloney in general surgery consultation. -Esophagitis and gastritis per EGD, continue Protonix. -Nausea vomiting, continue Zofran as needed for nausea, gentle hydration. -Neck pain, cervical CT is negative for any acute abnormality. -Hypertension, continue lisinopril -MS -Depression, continue Effexor. -Large hiatal hernia Further recommendations based on clinical course. Plan of care discussed with Dr. Alves. Subjective 24 Hr Interval Summary Free Text/Dictation Up in chair, Stool for C. difficile negative, afebrile, dw staff, seen by surgery, staff. ENT: no complaints Respiratory: no complaints Cardiovascular: no complaints Gastrointestinal: diarrhea Musculoskeletal: no complaints Skin: no complaints Exam/Review of Systems Vital Signs Vitals Vital Signs Date Time Temp Pulse Resp B/P Pulse Ox O2 Delivery O2 Flow Rate FiO2 03/20/17 08:30 98.0 85 18 160/67 97 03/16/17 19:38 Room Air Intake and Output 03/19/17 03/19/17 03/20/17 15:00 23:00 07:00 Intake Total 50 ml 1130 ml 510 ml Output Total 1200 ml Balance 50 ml -70 ml 510 ml Exam Constitutional: alert, oriented, well developed Psych: nl mood/affect Respiratory: clear to auscultation, normal air movement Cardiovascular: nl pulses, regular rate and rhythm Gastrointestinal: soft, tender (mild tenderness -RUQ) Musculoskeletal: nl extremities to inspection Extremities: normal pulses Neurological: nl mental status, nl speech Results Result Diagram: 03/20/17 0500 03/20/17 0420 Results 24 hrs Laboratory Tests Test 03/20/17 04:20 03/20/17 05:00 Sodium Level 142 Potassium Level 4.1 Chloride Level 103 Carbon Dioxide Level 24 Anion Gap 19 H Blood Urea Nitrogen 6 L Creatinine 0.94 Glucose Level 89 Calcium Level 8.9 White Blood Count 7.3 Red Blood Count 3.77 L Hemoglobin 11.3 L Hematocrit 34.3 L Mean Corpuscular Volume 91.0 Mean Corpuscular Hemoglobin 30.0 Mean Corpuscular Hemoglobin Concent 32.9 Red Cell Distribution Width 13.2 Platelet Count 273 Mean Platelet Volume 10.6 H Neutrophils % 70.4 Lymphocytes % 12.1 L Monocytes % 12.8 H Eosinophils % 4.0 Basophils % 0.4 Nucleated Red Blood Cells % 0.0 Neutrophils # (Manual) 5.1 Lymphocytes # 0.9 Monocytes # 0.9 Eosinophils # 0.3 Basophils # 0.0 Nucleated Red Blood Cells # 0.0 Medications Medications Current Medications Pantoprazole (Protonix Tab) 40 mg QHS PO Last administered on 03/19/17 20:37; Admin Dose 40 MG; Start 03/14/17 at 21:00 Calcium/Vitamin D (Oyster Shell/ Vit-D (500/200)) 1 tab BID PO Last administered on 03/20/17 09:19; Admin Dose 1 TAB; Start 03/14/17 at 09:00 Venlafaxine HCl (Effexor) 75 mg DAILY PO Last administered on 03/20/17 09:19; Admin Dose 75 MG; Start 03/14/17 at 11:30 Oxybutynin Chloride 5 mg 5 mg QID PO Last administered on 03/20/17 12:53; Admin Dose 5 MG; Start 03/14/17 at 11:00 Sodium Chloride (NS) 1,000 ml @ 50 mls/hr Q20H IV Last administered on 18:59; Admin Dose 50 MLS/HR; Start 03/14/17 at 05:30 Ondansetron HCl (Zofran Inj) 4 mg Q6H PRN IV NAUSEA AND/OR VOMITING Last administered on 03/16/17 07:39; Admin Dose 4 MG; Start 03/14/17 at 05:30 Hydromorphone HCl (Dilaudid) 1 mg Q4H PRN IV PAIN Last administered on 22:24; Admin Dose 1 MG; Start 03/14/17 at 06:00 Acetaminophen (Tylenol Tab) 650 mg Q6H PRN PO PAIN AND OR ELEVATED TEMP; Start 03/14/17 at 06:00 Hydrochlorothiazide (Hydrochlorothiazide) 12.5 mg DAILY PO Last administered on 03/20/17 09:19; Admin Dose 12.5 MG; Start 03/14/17 at 11:00 Lisinopril (Zestril) 10 mg DAILY PO Last administered on 03/20/17 09:19; Admin Dose 10 MG; Start 03/14/17 at 11:00 Lactulose 20 gm 20 gm Q3 PO ; Start 03/15/17 at 21:00; Status Future Hold Ampicillin Sodium/ Sulbactam Sodium (Unasyn 1.5gm/NS (Pmx)) 50 ml @ 100 mls/hr Q6 IVPB Last administered on 03/20/17 13:02; Admin Dose 100 MLS/HR; Start at 18:00 KARIS RODAS Mar 20, 2017 15:44
[2017-03-20 19:59] VITALS: BP 143/73; RESP 22
[2017-03-20] MEDS: PANTOPRAZOLE (EC) 40 MG TAB PO SCH (20:55)
[2017-03-21] MEDS: AMPICILLIN/SULB 1.5GM/NS (PMX) 50 ML IVPB SCH ×4 (00:52→17:50)
[2017-03-21 01:43] VITALS: BP 127/72; RESP 21
[2017-03-21 05:31] LABS: BASOPHILS % 0.4 % (0.0-2.0); EOSINOPHILS # 0.4 10^3/ul (0.0-0.5); EOSINOPHILS % 4.6 % (0.0-7.0); HEMATOCRIT 33.2 % (37.0-47.0); HEMOGLOBIN 11.2 g/dl (12.0-16.0); LYMPHOCYTES # 1.3 10^3/ul (0.8-2.9); MEAN CORPUSCULAR HEMOGLOBIN 30.4 pg (29.0-33.0); MEAN CORPUSCULAR HGB CONC 33.7 g/dl (32.0-37.0); MEAN PLATELET VOLUME 10.9 fl (7.4-10.4); MONOCYTE # 1.1 10^3/ul (0.3-0.9); NEUTROPHILS % 64.3 % (39.0-77.0); PLATELET COUNT 307 10^3/UL (140-415); RED BLOOD COUNT 3.69 10^6/ul (4.20-5.40); RED CELL DISTRIBUTION WIDTH 13.5 % (11.5-14.5); WHITE BLOOD COUNT 8.1 10^3/ul (4.8-10.8)
[2017-03-21 05:52] LABS: CALCIUM 9.3 mg/dl (8.4-10.2); CREATININE 0.84 mg/dl (0.44-1.00)
[2017-03-21 08:10] VITALS: BP 139/65; RESP 18
[2017-03-21] MEDS: OXYBUTYNIN 5 MG TAB PO SCH ×3 (08:24→17:03)
[2017-03-21] MEDS: VENLAFAXINE 75 MG TABLET PO SCH (08:24)
[2017-03-21] MEDS: CALCIUM/VITAMIN D (500/200) TAB PO SCH (08:24)
[2017-03-21] MEDS: LISINOPRIL 10 MG TAB PO SCH (08:24)
[2017-03-21] MEDS: HYDROCHLOROTHIAZIDE 12.5 MG CAP PO SCH (08:24)
[2017-03-21 12:51] VITALS: BP 127/72; RESP 18
--- NOTE | 2017-03-21 16:11 | PN ---
Date/Time of Note Date/Time of Note DATE: 03/21/17 TIME: 16:03 Assessment/Plan VTE Prophylaxis VTE Prophylaxis Intervention: ambulation, SCD's Lines/Catheters IV [facility] (from [facility] [place] Urinary Cath still in place: No Assessment/Plan Assessment/Plan 76-year-old female presented to emergency about 5 days ago complaining of severe lower abdominal pain in the midline for 3 days duration some nausea. CT scan suggested thickening of the wall of the descending colon and also scattered diverticuli of the sigmoid colon. CT scan, MRCP has shown evidence of a stone in the gallbladder but no acute cholecystitis. The scan did show evidence of opening of the cystic duct and common duct. From surgical point of view I believe that the patient has problem with the left colon and sigmoid colon the presentation was originating from the colon,of course of incidental finding is that she also has stone in the gallbladder. Suggestion: full course of antibiotic considering diverticulitis and colitis, she can have her gallbladder removed later on as an elective case. Subjective 24 Hr Interval Summary Free Text/Dictation States that feels better. She is willing to go home. Tolerated regular diet since last night, but has not had any bowel movement today. Has slight discomfort in the left lower quadrant of the abdomen and lower part Exam/Review of Systems Vital Signs Vitals Vital Signs Date Time Temp Pulse Resp B/P Pulse Ox O2 Delivery O2 Flow Rate FiO2 03/21/17 12:51 98.4 78 18 127/72 96 Intake and Output 03/20/17 03/20/17 03/21/17 15:00 23:00 07:00 Intake Total 580 ml 700 ml Balance 580 ml 700 ml Exam Alert awake oriented 3 appears comfortable sitting in the chair Vital signs stable no fever. No leukocytosis. Deep pressure there is some mild tenderness in the left lower quadrant of the abdomen. Results Result Diagram: 03/21/17 0420 03/21/17 0420 Results 24 hrs Laboratory Tests Test 03/21/17 04:20 White Blood Count 8.1 Red Blood Count 3.69 L Hemoglobin 11.2 L Hematocrit 33.2 L Mean Corpuscular Volume 90.0 Mean Corpuscular Hemoglobin 30.4 Mean Corpuscular Hemoglobin Concent 33.7 Red Cell Distribution Width 13.5 Platelet Count 307 Mean Platelet Volume 10.9 H Neutrophils % 64.3 Lymphocytes % 16.0 Monocytes % 14.0 H Eosinophils % 4.6 Basophils % 0.4 Nucleated Red Blood Cells % 0.0 Neutrophils # (Manual) 5.2 Lymphocytes # 1.3 Monocytes # 1.1 H Eosinophils # 0.4 Basophils # 0.0 Nucleated Red Blood Cells # 0.0 Sodium Level 138 Potassium Level 4.0 Chloride Level 99 Carbon Dioxide Level 29 Anion Gap 14 Blood Urea Nitrogen 6 L Creatinine 0.84 Glucose Level 97 Calcium Level 9.3 Medications Medications Current Medications Pantoprazole (Protonix Tab) 40 mg QHS PO Last administered on 03/20/17 20:55; Admin Dose 40 MG; Start 03/14/17 at 21:00 Calcium/Vitamin D (Oyster Shell/ Vit-D (500/200)) 1 tab BID PO Last administered on 03/21/17 08:24; Admin Dose 1 TAB; Start 03/14/17 at 09:00 Venlafaxine HCl (Effexor) 75 mg DAILY PO Last administered on 03/21/17 08:24; Admin Dose 75 MG; Start 03/14/17 at 11:30 Oxybutynin Chloride (Ditropan) 5 mg QID PO Last administered on 03/21/17 12:03 ; Admin Dose 5 MG; Start 03/14/17 at 11:00 Ondansetron HCl (Zofran Inj) 4 mg Q6H PRN IV NAUSEA AND/OR VOMITING Last administered on 03/16/17 07:39; Admin Dose 4 MG; Start 03/14/17 at 05:30 Hydromorphone HCl (Dilaudid) 1 mg Q4H PRN IV PAIN Last administered on 22:24; Admin Dose 1 MG; Start 03/14/17 at 06:00 Acetaminophen (Tylenol Tab) 650 mg Q6H PRN PO PAIN AND OR ELEVATED TEMP; Start 03/14/17 at 06:00 Hydrochlorothiazide (Hydrochlorothiazide) 12.5 mg DAILY PO Last administered on 03/21/17 08:24; Admin Dose 12.5 MG; Start 03/14/17 at 11:00 Lisinopril 10 mg 10 mg DAILY PO Last administered on 03/21/17 08:24; Admin Dose 10 MG; Start 03/14/17 at 11:00 Ampicillin Sodium/ Sulbactam Sodium (Unasyn 1.5gm/NS (Pmx)) 50 ml @ 100 mls/hr Q6 IVPB Last administered on 03/21/17t 12:03; Admin Dose 100 MLS/HR; Start at 18:00 RODNEY MCINTOSH MD Mar 21, 2017 16:11
== END 2017-03-21 18:55 | disposition home or self-care (01) | DRG 392 ==
LOC: E/R 18:24 → MS1 03-14 01:22
PROVIDERS: ADMIT Internal Medicine; ATTEND Internal Medicine
PROC: 0DB68ZX Excision of Stomach, Via Natural or Artificial Opening Endoscopic, Diagnostic (ICD-10-PCS; principal; 2017-03-16 18:30)
PROC: 0DJD8ZZ Inspection of Lower Intestinal Tract, Via Natural or Artificial Opening Endoscopic (ICD-10-PCS; 2017-03-16 18:30)
DX: K52.9 Noninfective gastroenteritis and colitis, unspecified (principal); G35 Multiple sclerosis; K57.32 Diverticulitis of large intestine without perforation or abscess without bleeding; I10 Essential (primary) hypertension; F32.9 Major depressive disorder, single episode, unspecified; E87.6 Hypokalemia; R13.10 Dysphagia, unspecified; K44.9 Diaphragmatic hernia without obstruction or gangrene; K20.9 Esophagitis, unspecified; K29.70 Gastritis, unspecified, without bleeding; R11.2 Nausea with vomiting, unspecified; M54.2 Cervicalgia; K81.9 Cholecystitis, unspecified; R22.1 Localized swelling, mass and lump, neck
CPT/HCPCS: 36415; 70491; 74176; 74181; 78226; 80048; 80053; 81001; 83690; 85025; 85610; 87075; 87081; 88305; 88312; 93005; 96361; 96374; 96375; 97162; A9537; J0295; J0696; J1170; J2250; J2405; J2765; J3010; J7030; Q9967

== ENCOUNTER 2018-07-07 15:40 | Day surgery (SDC) | END 2018-07-07 18:30 | disposition home or self-care (01) ==

== ENCOUNTER 2018-10-20 11:03 | Emergency (ER) | payer MEDICARE, OTHER ==
[~2018-10-20] VITALS: Ht 167.6 cm; Wt 63.5 kg
[~2018-10-20 11:03] MED LIST changes: +CALCIUM ACETATE; +FOSAMAX; +IBUP-1545 PO; -IBUP800T25 PO; +VENLAFAXINE; +[UNRECOGNIZED DRUG - OTHER]; +[UNRECOGNIZED DRUG - OTHER]; +lisinopril
[2018-10-20 11:05] VITALS: BP 155/73; PULSE 87; RESP 20; Ht 167.6 cm; Wt 63.5 kg
--- NOTE | 2018-10-20 17:42 | ERD ---
ER Documentation Chief Complaint Chief Complaint Complains of right hand pain x 3 days HPI 78-year-old female patient with past medical history of multiple sclerosis, hypertension, depression, anxiety presents the ED complaining of right hand pain that started 4 PM yesterday. Patient reports that she was at her assisting living facility, and got into a verbal argument with another resident. Patient reports that she was pointing her finger at the other resident, the other resident twisted her right hand and now her index finger is swollen and bruised. Patient reports that she reported this to [employer]. States that the bruising did not occur until today. ROS All systems reviewed and are negative except as per history of present illness. Medications Home Meds Reported Medications [Calcium Acetate] No Conflict Check 07/07/18 [Fosamax] No Conflict Check 07/07/18 [Oxbutynin] No Conflict Check 07/07/18 [Docalace] No Conflict Check 07/07/18 [Venlafaxine] No Conflict Check 07/07/18 [lisinopril] No Conflict Check 07/07/18 Metoclopramide* (Reglan*) 10 Mg Tablet, 10 MG PO AC MEALS, TAB 03/31/14 Pantoprazole (Protonix) 40 Mg Tabec, 40 MG PO QHS, TAB 03/31/14 Ibuprofen* (Ibuprofen*) 800 Mg Tab, 800 MG PO, TAB 03/31/14 Famotidine* (Famotidine*) 20 Mg Tablet, 20 MG PO DAILY, TAB 03/31/14 [Effexor] 75 MG TAB No Conflict Check, 75 MG PO DAILY 02/26/13 Calcium Carbonate-Vitamin D3 (Calcium + D 600 Tablet) 1 Tab Tablet, 1 TAB PO BID 02/26/13 Lisinopril-Hydrochlorothiazide (Lisinopril-HCTZ) 1 Tab Tablet, 1 TAB PO DAILY 02/26/13 [Oxybutynin] 25 MG TAB No Conflict Check, 25 MG PO QID 02/26/13 Allergies Allergies: Coded Allergies: aspirin (Verified Allergy, Mild, 03/30/14) gabapentin (Verified Allergy, Mild, ITCHINESS, 03/30/14) hydrocodone (Verified Allergy, Mild, MAKES PT SICK, 04/06/14) PMhx/Soc History of Surgery: Yes (RIGHT WRIST ) Anesthesia Reaction: Yes (NAUSEA) Hx Neurological Disorder: No Hx Respiratory Disorders: No Hx Cardiac Disorders: No Hx Psychiatric Problems: No Hx Miscellaneous Medical Probl: No Hx Alcohol Use: No Hx Substance Use: No Hx Tobacco Use: No Smoking Status: Never smoker FmHx Family History: No diabetes, No coronary disease Physical Exam Vitals Vital Signs Date Temp Pulse Resp B/P (MAP) Pulse Ox O2 O2 Flow FiO2 Time Delivery Rate 10/20/18 98.0 87 20 155/73 97 11:05 (100) Physical Exam Const: [id number], well-nourished. In no acute distress. Head: Atraumatic, normocephalic Eyes: Normal Conjunctiva without injection ENT: Normal external ear, nose and mouth. Neck: Full range of motion. No meningismus. Resp: Clear to auscultation bilaterally. No wheezing, rhonchi, rales, or crackles. No accessory muscle use. No retractions. Cardio: Regular rate and rhythm, no murmurs Skin: No petechiae or rashes Back: No midline tenderness. No CVA tenderness. Ext: No cyanosis, or edema. Cap refill less than 2 seconds. Distal pulses intact bilaterally. Tenderness to palpation of the right index finger with ecchymosis noted on the volar aspect of patient's right index finger extending to the palm. Full range of motion of the DIP, PIP, MCP joints bilaterally. No snuffbox tenderness. Full range of motion of the bilateral wrists with flexion, extension, EPL and lateral deviation. Neur: Awake and alert. Normal gait and coordination. Muscle strength 5/5. Sensation intact bilaterally. Psych: Normal Mood and Affect Procedures/MDM 78-year-old female patient with no significant past medical history presents ED complaining of right hand pain. Patient is afebrile and nontoxic-appearing. Patient's blood pressure is 155/73. Blood Pressure Assessment: Patient's blood pressure was elevated (>120/80) but appears stable without evidence of hypertension emergency or urgency. The patient was counseled about the risks of hypertension and urged to pursue outpatient monitoring and therapy within a week with their primary care physician. Patient did not want any pain medications when offered here in the ED. Right hand x-ray was ordered to further evaluate patient. Patient is placed in an Suman wrap as well as a metal splint for her right index finger. Splint Assessment: Neurovascularly intact pre and post splint placement with good fit. IMPRESSION: 1. The osseous elements appear osteopenic but intact. 2. Mild arthrosis most prominent about the interphalangeal joint of the right thumb followed by the distal interphalangeal joint of the right ring finger. Differentials include hand sprain versus contusion. Patient's case has been reported to [employer] by patient, yesterday. Patient's extremity symptoms have stabilized while they have been evaluated in the department and are appropriate for outpatient follow up. No evidence of fractures, dislocations, compartment syndrome, neurologic injury, vascular injury, open joint, open fracture, tendon laceration, septic arthritis, osteomyelitis, DVT, foreign body, or other emergent conditions. Diagnosis: Injury of Hand Follow up with primary care physician in 1-2 days. Instructed patient to return to the ED sooner for any worsening symptoms. Patient's questions were answered. Patient is hemodynamically stable. Patient understood and agreed with discharge plan. Patient discharged stable. Disclaimer: Inadvertent spelling and grammatical errors are likely due to EHR/dictation software use and do not reflect on the overall quality of patient care. Also, please note that the electronic time recorded on this note does not necessarily reflect the actual time of the patient encounter. Departure Diagnosis: Primary Impression: Injury of hand Encounter type: initial encounter Laterality: right Qualified Codes: S69.91XA - Unspecified injury of right wrist, hand and finger(s), initial encounter Condition: Stable Patient Instructions: Parts of a Hand, Contusion, Hand, Sprain Hand Referrals: VIRGINIA LANDEROS MD (PCP) [facility] YOU HAVE RECEIVED A MEDICAL SCREENING EXAM AND THE RESULTS INDICATE THAT YOU DO NOT HAVE A CONDITION THAT REQUIRES URGENT TREATMENT IN THE EMERGENCY DEPARTMENT. FURTHER EVALUATION AND TREATMENT OF YOUR CONDITION CAN WAIT UNTIL YOU ARE SEEN IN YOUR DOCTORS OFFICE WITHIN THE NEXT 1-2 DAYS. IT IS YOUR RESPONSIBILITY TO MAKE AN APPOINTMENT FOR FOLOW-UP CARE. IF YOU HAVE A PRIMARY DOCTOR --you should call your primary doctor and schedule an appointment IF YOU DO NOT HAVE A PRIMARY DOCTOR YOU CAN CALL OUR PHYSICIAN REFERRAL HOTLINE AT IF YOU CAN NOT AFFORD TO SEE A PHYSICIAN YOU CAN CHOSE FROM THE FOLLOWING [facility] [address] [facility]. [facility] [address] [facility] [address] [facility] [facility] [address] [facility] [address] [facility] [address] [facility]. [facility]. [address] [facility]. [facility] YOU HAVE RECEIVED A MEDICAL SCREENING EXAM AND THE RESULTS INDICATE THAT YOU DO NOT HAVE A CONDITION THAT REQUIRES URGENT TREATMENT IN THE EMERGENCY DEPARTMENT. FURTHER EVALUATION AND TREATMENT OF YOUR CONDITION CAN WAIT UNTIL YOU ARE SEEN IN YOUR DOCTORS OFFICE WITHIN THE NEXT 1-2 DAYS. IT IS YOUR RESPONSIBILITY TO MAKE AN APPOINTMENT FOR FOLOW-UP CARE. IF YOU HAVE A PRIMARY DOCTOR --you should call your primary doctor and schedule and appointment IF YOU DO NOT HAVE A PRIMARY DOCTOR YOU CAN CALL OUR PHYSICIAN REFERRAL HOTLINE AT . IF YOU CAN NOT AFFORD TO SEE A PHYSICIAN YOU CAN CHOSE FROM THE FOLLOWING [facility] INSTITUTIONS[facility] [address] [place] [address] [facility] [address] [place] [address] [facility] [address] [place] [address] [facility] Urgent Care 7 a.m.- 11 p.m. Every Day of the Week NO APPOINTMENT OR AUTHORIZATION NEEDED SO [facility] Hours: Mon-Fri 9:00 AM - 5:00 PM Additional Instructions: Call your primary care doctor TOMORROW for an appointment during the next 2-3 days.See the doctor sooner or return here if your condition worsens before your appointment time. ARIANA SHPEARD PA-C Oct 20, 2018 17:42
== END 2018-10-20 14:34 | disposition home or self-care (01) ==
LOC: FTE 11:03
DX: S69.91XA Unspecified injury of right wrist, hand and finger(s), initial encounter (principal); I10 Essential (primary) hypertension; Y04.8XXA Assault by other bodily force, initial encounter

== ENCOUNTER 2019-05-30 01:59 | Emergency (ER) | payer MEDICARE, OTHER ==
[~2019-05-30] VITALS: Ht 162.6 cm; Wt 62.4 kg
[2019-05-30 02:20] VITALS: Ht 162.6 cm; Wt 62.4 kg
[2019-05-30] MEDS ORDERED: SOD CHLORIDE 0.9% 100 ML ONE (04:28)
[2019-05-30] MEDS ORDERED: IOHEXOL 300MG/ML 150 ML BTL ONE (04:28)
[2019-05-30 05:48] VITALS: BP 126/66; PULSE 68; RESP 17
== END 2019-05-30 05:50 | disposition home or self-care (01) ==
LOC: E/R 01:59
DX: M79.661 Pain in right lower leg (principal); I10 Essential (primary) hypertension
CPT/HCPCS: 36415; 71045; 71275; 73590; 80053; 83690; 84484; 85025; 85378; 93971; 99285; Q9967